=== PATIENT | female | born 1960 | race Caucasian/White ===

== ENCOUNTER 2016-12-06 16:15 | Emergency (ER) | payer SELFPAY ==
[2016-12-06] MEDS ORDERED: Proparacaine 0.5% OPHTH.SOL* 15 ML BTL ONE (16:23)
[2016-12-06] MEDS ORDERED: Fluorescein Sodium TOPICAL* 1 MG TEST ONE (16:23)
[2016-12-06] MEDS ORDERED: BSS OPTH.SOL* BTL ONE (16:23)
[2016-12-06 16:40] VITALS: BP 144/76
--- NOTE | 2016-12-06 17:33 | UC ---
Eye Complaint HPI - HPI Summary HPI Summary: R eye irritation and mild drainage for a couple days with FB sensation. Crusting and draining worse today, sharper sensation just this evening. Lots of R eye redness. - History of Current Complaint Chief Complaint: UCEye Stated Complaint: EYE IRRITATION Time Seen by Provider: 12/06/16 17:23 Hx Obtained From: Patient ?: No Onset/Duration: Gradual Onset, Lasting Days Timing: Constant Severity Initially: Mild Severity Currently: Mild Location of Injury: Conjunctiva Character: Sharp Aggravating Factor(s): Nothing Alleviating Factor(s): Nothing Associated Signs And Symptoms: Positive: Drainage (Clear) - Allergies/Home Medications Allergies/Adverse Reactions: Allergies Allergy/AdvReac Type Severity Reaction Status Date / Time No Known Allergies Allergy Verified 06/21/16 08:08 Home Medications: Home Medications Aleve 2 tab PO PRN 12/06/16 [History] PMH/Surg Hx/FS Hx/Imm Hx Endocrine History Of: Reports: Dyslipidemia - Hyper Denies: Diabetes, Thyroid Disease Cardiovascular History Of: Denies: Cardiac Disorders, Hypertension Respiratory History Of: Denies: COPD, Asthma GI/ History Of: Denies: Ulcer - Surgical History Surgical History: Yes Surgery Procedure, Year, and Place: 2 hernia surgeries. partial hysterectomy - Family History Known Family History: Positive: Hypertension Negative: Diabetes - Social History Occupation: Employed Full-time Lives: Alone - with boyfriend Alcohol Use: Occasionally Substance Use Type: None Smoking Status (MU): Never Smoked Tobacco Review of Systems Constitutional: Negative Skin: Negative Eyes: Drainage, Eye Redness ENT: Negative Respiratory: Negative Cardiovascular: Negative Gastrointestinal: Negative Genitourinary: Negative Motor: Negative Neurovascular: Negative Musculoskeletal: Negative Neurological: Negative Psychological: Negative All Other Systems Reviewed And Are Negative: Yes Physical Exam Triage Information Reviewed: Yes Appearance: Well-Appearing, No Pain Distress, Well-Nourished Vital Signs: Initial Vital Signs Temp 98.6 F 12/06/16 16:33 Pulse 70 12/06/16 16:33 Resp 18 12/06/16 16:33 BP 144/76 12/06/16 16:33 Pulse Ox 97 12/06/16 16:33 Eye Exam: Other - stye noted on mid lower eyelid edge. FB sensation resolves with pulling lid away from eye. No photophobia. Eyes: Positive: Conjunctiva Inflamed - R ENT Exam: Normal ENT: Positive: Normal ENT inspection, Hearing grossly normal, Pharynx normal, TMs normal Dental Exam: Normal Neck exam: Normal Neck: Positive: Supple, Nontender, No Lymphadenopathy Respiratory Exam: Normal Respiratory: Positive: Chest non-tender, Lungs clear, Normal breath sounds, No respiratory distress, No accessory muscle use Cardiovascular Exam: Normal Cardiovascular: Positive: RRR, No Murmur Musculoskeletal Exam: Normal Neurological Exam: Normal Psychological Exam: Normal Skin Exam: Normal Eye Complaint Course/Dx - Differential Dx/Diagnosis Provider Diagnoses: R eye stye. R eye conjunctivitis Discharge - Discharge Plan Condition: Stable Disposition: HOME Prescriptions: Ciprofloxacin 0.3% OPTH.BONI* [Cipro 0.3% Opth*] 2 drop RIGHT EYE QID #5 ml Patient Education Materials: Stye (ED), Conjunctivitis (ED) Referrals: No Primary Care Phys,NOPCP [Primary Care Provider] - Additional Instructions: Apply warm soaks every 1-2 hours this weekend. If you do not see clear improvement by next week, please return for care.
== END 2016-12-06 17:32 | disposition home or self-care (01) ==
LOC: UCEAST 16:15
DX: H00.012 Hordeolum externum right lower eyelid (principal); H10.31 Unspecified acute conjunctivitis, right eye
CPT/HCPCS: 99212; A9270-GY; G0463

== ENCOUNTER 2017-08-19 15:28 | Emergency (ER) | payer BC ==
[2017-08-19] MEDS ORDERED: Dexamethasone TAB* 4 MG PO ONE (17:51)
[2017-08-19] MEDS ORDERED: Cyclobenzaprine TAB* 10 MG PO ONE (17:51)
[2017-08-19] MEDS ORDERED: Ketorolac INJ* 60 MG/2 ML VIAL IM ONE (17:51)
--- NOTE | 2017-08-19 17:56 | ED ---
Back Pain - HPI Summary HPI Summary: 56F presents with back pain for two weeks. She denies any injury. She describes it as a spasms of her lower back. She states the heating pad helps. she denies any pain down the leg. She denies any numbness or tingling. she denies any loss of bowel or bladder or saddle anasethesia. She denies any fever. She has been taking advil without relief. She states pain is sharp and comes and goes. 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 - History of Current Complaint Chief Complaint: EDBackInjuryPain Stated Complaint: BACK SPASMS/PAIN Time Seen by Provider: 08/19/17 17:42 Pain Intensity: 10 - Allergies/Home Medications Allergies/Adverse Reactions: Allergies Allergy/AdvReac Type Severity Reaction Status Date / Time No Known Allergies Allergy Verified 08/19/17 15:31 PMH/Surg Hx/FS Hx/Imm Hx Endocrine/Hematology History: Denies: Hx Diabetes, Hx Thyroid Disease Cardiovascular History: Denies: Hx Hypertension Respiratory History: Denies: Hx Asthma, Hx Chronic Obstructive Pulmonary Disease (COPD) GI History: Denies: Hx Ulcer - Surgical History Surgery Procedure, Year, and Place: 2 hernia surgeries. partial hysterectomy Infectious Disease History: No Infectious Disease History: Denies: Hx Hepatitis, Hx Human Immunodeficiency Virus (HIV), History Other Infectious Disease, Traveled Outside the in Last 30 Days - Family History Known Family History: Positive: Hypertension Negative: Diabetes - Social History Alcohol Use: Occasionally Substance Use Type: Reports: None Smoking Status (MU): Never Smoked Tobacco Review of Systems Negative: Fever Negative: Chest Pain Negative: Shortness Of Breath Positive: Myalgia - back pain All Other Systems Reviewed And Are Negative: Yes Physical Exam Triage Information Reviewed: Yes Vital Signs On Initial Exam: Initial Vitals Temp Pulse Resp BP Pulse Ox 97.3 F 88 16 162/88 97 08/19/17 15:30 08/19/17 15:30 08/19/17 15:30 08/19/17 15:30 08/19/17 15:30 Vital Signs Reviewed: Yes Appearance: Positive: Well-Appearing Skin: Positive: Warm, Dry Head/Face: Positive: Normal Head/Face Inspection Eyes: Positive: Normal, EOMI, ODALIS, Conjunctiva Clear ENT: Positive: Normal ENT inspection, Pharynx normal, TMs normal Respiratory/Lung Sounds: Positive: Clear to Auscultation, Breath Sounds Present Cardiovascular: Positive: Normal, RRR Musculoskeletal: Positive: Strength/ROM Intact - back with pain, Other - tenderness at L1-L2, tenderness over paraspinal muscles. neg SLR Neurological: Positive: Reflexes Intact - patella - Dony Coma Scale Coma Scale Total: 15 Diagnostics - Vital Signs Vital Signs Temp Pulse Resp BP Pulse Ox 08/19/17 15:30 97.3 F 88 16 162/88 97 - Laboratory Lab Statement: Any lab studies that have been ordered have been reviewed, and results considered in the medical decision making process. - Radiology back Xray Interpretation: Positive (See Comments) - IMPRESSION: Mild degenerative changes of the lower thoracic spine. Radiology Interpretation Completed By: Radiologist Re-Evaluation - Re-Evaluation First Eval Re-Evaluation Time: 19:18 Change: Improved Back Pain Course/Dx - Course Course Of Treatment: 56F presents with back pain for two weeks. She denies any injury. She describes it as a spasms of her lower back. She states the heating pad helps. she denies any pain down the leg. She denies any numbness or tingling. she denies any loss of bowel or bladder or saddle anasethesia. She denies any fever. She has been taking advil without relief. She states pain is sharp and comes and goes. 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 on exam tender over paraspinal muscle at L1-L2. back xray degenerative changes. gave flexeril and toradol and decadron and patient felt better. will d/c with same and referral for primary. patient understands and agrees with plan. - Diagnoses Differential Diagnosis/HQI/PQRI: Positive: Herniated Disc, Strain, Sprain Provider Diagnoses: Back pain Discharge - Discharge Plan Condition: Good Disposition: HOME Prescriptions: Cyclobenzaprine TAB* [Flexeril 10 MG TAB*] 10 mg PO TID PRN #15 tab PRN Reason: Pain Methylprednisolone [Medrol Dosepak 4 MG*] 4 mg PO .SEE ANABELLA INSTRUCTION #1 packet Patient Education Materials: Back Pain (ED) Forms: *Work Release Referrals: [facility] [place] [facility] [Outside] Additional Instructions: Follow directions on package for Medrol pack Take muscle relaxers three times a day, use with caution as will make drowsy Use ibuprofen or Tylenol for pain every 6 hours ice/heat area, move as much as possible Establish care with primary care physician Return to ED if develop any new or worsening symptoms
--- NOTE | 2017-08-19 18:40 | RAD ---
INDICATION: Back pain x2 weeks COMPARISON: None. TECHNIQUE: 5 views of the lumbar spine were obtained. FINDINGS: The vertebra are in normal alignment. No fracture is seen. There is mild loss of intervertebral disc height at the lower thoracic spine. IMPRESSION: Mild degenerative changes of the lower thoracic spine.
[2017-08-19 18:59] LABS: Urine Bacteria Absent (Absent); Urine Bilirubin Negative (Negative); Urine Glucose Negative (Negative); Urine Nitrite Negative (Negative)
[2017-08-19 19:27] VITALS: BP 141/78
== END 2017-08-19 19:27 | disposition home or self-care (01) ==
LOC: ED 15:28
DX: M54.9 Dorsalgia, unspecified (principal)
CPT/HCPCS: 72110; 81003; 81015; 87086; 96372; 99282; A9270-GY; J1885; J8540

== ENCOUNTER 2017-10-12 08:14 | Emergency (ER) | payer BC ==
[2017-10-12 08:20] VITALS: BP 170/70
--- NOTE | 2017-10-12 09:14 | UC ---
Throat Pain/Nasal Manjinder HPI - HPI Summary HPI Summary: worsening dental pain over the past week---right lower jaw is swollen - History of Current Complaint Hx Obtained From: Patient ?: No Onset/Duration: Gradual Onset, Worse Since - pastthis week Severity: Severe Pain Intensity: 10 Pain Scale Used: 0-10 Numeric Cough: None Associated Signs & Symptoms: Positive: Negative <Lacey Valdez - Last Filed: 10/12/17 09:26> <Yelitza Granado - Last Filed: 10/12/17 09:46> - History of Current Complaint Chief Complaint: UCDentalProblem Stated Complaint: SWOLLEN GLANDS Time Seen by Provider: 10/12/17 09:03 - Allergies/Home Medications Allergies/Adverse Reactions: Allergies Allergy/AdvReac Type Severity Reaction Status Date / Time No Known Allergies Allergy Verified 08/19/17 15:31 PMH/Surg Hx/FS Hx/Imm Hx Previously Healthy: No - Back pain - Surgical History Surgical History: Yes Surgery Procedure, Year, and Place: 2 hernia surgeries. partial hysterectomy - Family History Known Family History: Positive: Hypertension Negative: Diabetes - Social History Occupation: Employed Full-time Lives: With Family Alcohol Use: Occasionally Substance Use Type: None Smoking Status (MU): Never Smoked Tobacco <Lacey Valdez - Last Filed: 10/12/17 09:26> Review of Systems Constitutional: Negative Skin: Negative Eyes: Negative ENT: Dental Pain Respiratory: Negative Cardiovascular: Negative Gastrointestinal: Negative Genitourinary: Negative Motor: Negative Neurovascular: Negative Musculoskeletal: Negative Neurological: Negative Psychological: Negative Is Patient Immunocompromised?: No All Other Systems Reviewed And Are Negative: Yes <Lacey Valdez - Last Filed: 10/12/17 09:26> Physical Exam Triage Information Reviewed: Yes Appearance: Well-Appearing, Pain Distress, Obese Vital Signs: Initial Vital Signs Temp 97.9 F 10/12/17 08:18 Pulse 91 10/12/17 08:18 Resp 18 10/12/17 08:18 BP 170/70 10/12/17 08:18 Pulse Ox 100 10/12/17 08:18 Vital Signs Reviewed: Yes Eye Exam: Normal Eyes: Positive: Conjunctiva Clear ENT Exam: Normal ENT: Positive: Normal ENT inspection, Hearing grossly normal, Pharynx normal, TMs normal, Dental tenderness. Negative: Nasal congestion, Nasal drainage, Tonsillar swelling, Tonsillar exudate, Trismus, Muffled voice, Hoarse voice Dental Exam: Normal Dental: Positive: Percussion Tenderness @ - multipl, Gross Decay/Caries @, Dental Fracture @, Abscess @ Neck exam: Normal Neck: Positive: Supple, Nontender, No Lymphadenopathy Respiratory Exam: Normal Respiratory: Positive: Chest non-tender, Lungs clear, Normal breath sounds, No respiratory distress, No accessory muscle use Cardiovascular Exam: Normal Cardiovascular: Positive: RRR, No Murmur, Pulses Normal, Brisk Capillary Refill Musculoskeletal Exam: Normal Musculoskeletal: Positive: Strength Intact, ROM Intact, No Edema Neurological Exam: Normal Neurological: Positive: Alert, Muscle Tone Normal Psychological Exam: Normal Skin Exam: Normal <Lacey Valdez - Last Filed: 10/12/17 09:26> Vital Signs: Initial Vital Signs Temp 97.9 F 10/12/17 08:18 Pulse 91 10/12/17 08:18 Resp 18 10/12/17 08:18 BP 170/70 10/12/17 08:18 Pulse Ox 100 10/12/17 08:18 <Yelitza Granado - Last Filed: 10/12/17 09:46> Throat Pain/Nasal Course/Dx - Course Assessment/Plan: clindamycin, pain med, mouth wash, follow at dentist yaneth, follow with pcp for blood pressure recheck - Differential Dx/Diagnosis Provider Diagnoses: Multiple denal carries and abscess, elevated blood pressure with diagnosis of hypertension <Lacey Valdez - Last Filed: 10/12/17 09:26> Discharge <Lacey Valdez - Last Filed: 10/12/17 09:26> <Yelitza Granado - Last Filed: 10/12/17 09:46> - Discharge Plan Condition: Stable Disposition: HOME Prescriptions: Chlorhexidine MW 0.12% 473ML* [Peridex Mouth Wash 0.12%] 15 ml MT TID #473 btl Clindamycin Cap(NF) [Clindamycin Cap 300 mg Cap(NF)] 300 mg PO Q6H #40 cap Hydrocodone-Acetaminophen [Hydrocodone/Acetaminophen 5-325 mg] 1 tab PO Q6H #16 tab MDD 4 Patient Education Materials: Dental Abscess (ED), Hypertension (ED), Toothache (ED) Referrals: [facility] [place] [facility] [Outside] - 2 Weeks Additional Instructions: Follow with Dentist YANETH Attestation Statement Scribe Attestation: I was available for consult. This patient was seen by the LISSETH. The patient was not presented to, seen by, or examined by me. -Jing User Type: Provider - I was available for consult. This patient was seen by the LISSETH. The patient was not presented to, seen by, or examined by me. -Jing <Yelitza Granado - Last Filed: 10/12/17 09:46>
== END 2017-10-12 09:35 | disposition home or self-care (01) ==
LOC: UCEAST 08:14
DX: K02.9 Dental caries, unspecified (principal); K04.7 Periapical abscess without sinus; I10 Essential (primary) hypertension
CPT/HCPCS: 99212; G0463

== ENCOUNTER 2017-12-08 11:23 | Emergency (ER) | payer BC ==
[2017-12-08 11:45] VITALS: BP 135/78
--- NOTE | 2017-12-08 12:15 | UC ---
Back Pain HPI - HPI Summary HPI Summary: Patient presents of nontraumatic thoracic back pain x one week. She states she has had problems with her back off and on for a long time. 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 And one week ago she started to experience pain in the thoracic area that at times radiates outward bilaterally. She states the pain is worse with movement, and improves at rest. She denies any numbness or weakness of the arm. Denies fever, chills, cough, chest congestion, rhinorrhea, sore throat or ear pain, generalized myalgias, or neuralgias associated with her pain. She states it is like previous back pain she has had in the past. Denies any incontinence of bowel or bladder. 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 Character: Sharp, Spasmodic Aggravating Factor(s): Movement, Lifting Alleviating Factor(s): Heat, OTC Meds Associated Signs And Symptoms: Positive: Negative - Risk Factors AAA Risk Factors: Negative TAD Risk Factors: Negative Cauda Equina Risk Factors: Negative Epidural Abscess Risk Factors: Negative - Allergies/Home Medications Allergies/Adverse Reactions: Allergies Allergy/AdvReac Type Severity Reaction Status Date / Time No Known Allergies Allergy Verified 12/08/17 11:45 Home Medications: Home Medications Acetaminophen TAB* [Tylenol TAB*] 650 mg PO Q4H PRN 12/08/17 [History Confirmed 12/08/17] PMH/Surg Hx/FS Hx/Imm Hx Previously Healthy: Yes - Surgical History Surgical History: Yes Surgery Procedure, Year, and Place: 2 hernia surgeries. partial hysterectomy - Family History Known Family History: Positive: Hypertension Negative: Diabetes - Social History Occupation: Employed Full-time Alcohol Use: Occasionally Substance Use Type: Marijuana Substance Use Comment - Amount & Last Used: occassional Smoking Status (MU): Never Smoked Tobacco - Immunization History Most Recent Influenza Vaccination: 2017 Review of Systems Constitutional: Negative Skin: Negative Eyes: Negative ENT: Negative Respiratory: Negative Cardiovascular: Negative Gastrointestinal: Negative Genitourinary: Negative Motor: Negative Neurovascular: Negative Musculoskeletal: Arthralgia, Myalgia, Other: - reproted pain of the thoracic back area. Neurological: Negative Psychological: Negative Is Patient Immunocompromised?: No All Other Systems Reviewed And Are Negative: Yes Physical Exam Triage Information Reviewed: Yes Appearance: Well-Appearing Vital Signs: Initial Vital Signs Temp 98.6 F 12/08/17 11:38 Pulse 72 12/08/17 11:38 Resp 16 12/08/17 11:38 BP 135/78 12/08/17 11:38 Pulse Ox 98 12/08/17 11:38 Vital Signs Reviewed: Yes Eye Exam: Normal ENT Exam: Normal Neck exam: Normal Neck: Positive: 1 Respiratory Exam: Normal Cardiovascular Exam: Normal Musculoskeletal Exam: Normal, Other - back inspection; vertebra are in good aligment without step-offs or deformities. palaption; reproducible pain at t-10,t-11,t-12. and laterally over the latissmus dorsi bilateraly. ROM; intact in all planes of trunk with flexion, and extension. upper extremities strength testing equal 4/5. vasc; radial and ulnar pulses intact neruo;no dificits noted. Neurological Exam: Normal Psychological Exam: Normal Skin Exam: Normal Back Pain Course/Dx - Course Course Of Treatment: Patient presents with history of back pain, she reports todays back pain is similar to what she has had in the past. No recent injury or trauma noted. I did not feel that x-rays were therefore indicated. She was treated with muscle relaxants, and pain medication. She was cautioned that these medications can cause sedation, and she should no consume any alcohol, drive any vehicles, or operate any equipent. I told her that is her symtpoms persist more than 48 hours to follow up with her PCP.She verbalized understanding of and was in agreement with the discharge plan. - Differential Dx/Diagnosis Differential Diagnosis/HQI/PQRI: Strain, Sprain - acute on chronic thoracic back pain Provider Diagnoses: acute on chronic thoracic back pain Discharge - Discharge Plan Condition: Stable Disposition: HOME Prescriptions: Cyclobenzaprine TAB* [Flexeril 10 MG TAB*] 10 mg PO TID PRN #14 tab PRN Reason: muscle spasam HYDROcodone/ACETAMIN 5-325 MG* [[place] 5-325 TAB*] 1 tab PO Q8H PRN #14 tab MDD 3 PRN Reason: back pain Patient Education Materials: Aspirin Combination (By mouth), Back Pain (ED) Forms: *Work Release Referrals: Caitlin Butcher MD [Primary Care Provider] -
== END 2017-12-08 12:11 | disposition home or self-care (01) ==
LOC: UCEAST 11:23
DX: M54.6 Pain in thoracic spine (principal); G89.29 Other chronic pain
CPT/HCPCS: 99212; G0463

== ENCOUNTER 2017-12-31 15:31 | Emergency (ER) | payer BC ==
--- OUTSIDE RECORDS SUMMARY | 2017-12-31 15:38 | XMS REPORT ---
:1960 External Reference #:[id number] Author Organization [facility] Address [address] [place] [address] Phone [phone] Care Team Providers Name Role Phone Caitlin Butcher M.D. 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 @ [employer] Cigarette Use Never Smoked Cigarettes ETOH Use Occasional Smoking Patient has never smoked Recreational Drug Use Marijuana occasional Daily Caffeine Does not consume caffeine Currently Active Patient is currently sexually active Contraceptive Methods Current methods include vasectomy Contraceptive Methods Hysterectomy STD's No STD History Dom Violence Screen screening has been done Allergies, Adverse Reactions, Alerts Date Description Reaction Status Severity Comments 10/20/2017 NKDA active Medications Medication Date Status Form Strength Qnty SIG Indications Ordering Provider Hydrocodone-Aceta 00/00/ Active Tablets 5-325mg 1 by mouth Unknown minophen 0000 four times a day as needed pain Cyclobenzaprine 00/00/ Active Tablets 10mg 1 by mouth Unknown HCL 0000 three times a day as needed Physical Therapy 1units evaluate M65.311 Anastasiya 2017 - and treat Jillian 12/15/ 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 Do not swallow Hydrocodone-Aceta / Hx Tablets 5-325mg 1 by mouth Unknown minophen 0000 - four times a day as 2018 needed pain Clindamycin HCL / Hx Capsules 300mg 1 by mouth Unknown 0000 - four times a day 2018 Immunizations CPT Code Status Date Vaccine Lot # [id number] Given 10/20/2017 Tdap Tetanus, W Pertussis [id number] Given 10/20/2017 Influenza vac quadrivalent preservative free 3yrs [id number] and up Vital Signs Date Vital Result Comment 12/23/2017 BP Systolic 118 mmHg BP Diastolic 80 mmHg Heart Rate 74 /min Body Temperature 98.2 F Respiratory Rate 16 /min Height 59 inches 4'11" 12/15/2017 BP Systolic 124 mmHg BP Diastolic 84 mmHg Heart Rate 64 /min Body Temperature 98.8 F Respiratory Rate 18 /min Height 59 inches 4'11" Weight 151.00 lb BMI (Body Mass Index) 30.5 kg/m2 10/20/2017 BP Systolic 122 mmHg BP Diastolic 80 mmHg Heart Rate 78 /min Body Temperature 97.9 F Height 59 inches 4'11" Weight 152.25 lb BMI (Body Mass Index) 30.7 kg/m2 Results Test Date Test Result H/L Range Note Xray 12/08/2017 Mammography Screening, Bilateral; <pending> 2-View Each Breast Procedures Date CPT Code Description Status Comment 12/08/2017 Mammogram Completed 11/17/2010 Mammogram Completed ordered 10/20/17 Encounters Type Date Location Provider CPT E/M Dx Office Visit 12/15/2017 6:30p [place] [id number] M54.9 Office Visit 10/20/2017 9:00a [place] [id number] Z12.31 Z12.11 R03.0 M65.311 M79.671 Z23 Plan of Care 12/23/2017 - Anastasiya Babin NPM54.9 Dorsalgia, unspecifiedComments:Apply heat packs to affected area. Use acetaminophen/ibuprofen/aleve for pain as directed. Avoid heavy lifting. Do milena stretching but nothing strenuous. Sleep in a bed, avoid couches or recliners. Muscle relaxer: take at night. do not drink alcohol with this medication. Do no drive or operate heavy machinery with this medication due to its sedating effects. Return if condition worsens, fails to improve or if concerning features arise.Z12.11 Encounter for screening for malignant neoplasm of colonComments:colonoscopy has been ordered.AllComments :~B_~U_Medication Management~b_~u_ Patient Understands medications she's taking ? Yes No Are there Barriers to Adherence? Yes No Has the patient been asked about herbal supplements and therapies, and OTC meds? Yes No ~B_~U_Care Plan~b_~u_1. Patient has been queried about patient's goals/ preferences and functional/lifestyle goals at relevant visits. If relevant, describe: na2. Treatment goals as explained to the patient: above3. Are there barriers to meeting treatment goals? Yes No If Yes, please describe:4. Self-Management goals as described to the patient: Yes NoFollow up:As always, we strongly encourage a healthy diet and making physical activity a part of your every day life. If you have questions about how or where to start, please contact the office.
[2017-12-31 15:53] VITALS: BP 152/91
--- NOTE | 2017-12-31 16:19 | UC ---
Back Pain HPI - HPI Summary HPI Summary: Pt presents with continued lower back pain. She tells me that about 3 weeks ago she developed mid to lower back pain without injury. 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 She was seen by her PCP and by urgent care for this and is currently undergoing physical therapy, using norco, ibuprofen, tylenol, and flexeril all with very little relief. She presents today in a wheelchair, unable to ambulate without significant pain. She denies radiation of pain, numbness, tingling, dysuria, flank pain, saddle anesthesia, or loss of bowel/ bladder function. - History of Current Complaint Hx Obtained From: Patient Hx Last Menstrual Period: post Onset/Duration: Sudden Onset, Lasting Weeks Timing: Constant Severity Initially: Severe Severity Currently: Severe Pain Intensity: 10 Pain Scale Used: 0-10 Numeric <Denis Sellers - Last Filed: 01/01/18 00:51> <Yelitza Granado - Last Filed: 01/01/18 09:28> - History of Current Complaint Chief Complaint: UCBackPain Stated Complaint: BACK PAIN Time Seen by Provider: 12/31/17 16:09 - Allergies/Home Medications Allergies/Adverse Reactions: Allergies Allergy/AdvReac Type Severity Reaction Status Date / Time No Known Allergies Allergy Verified 12/31/17 16:51 PMH/Surg Hx/FS Hx/Imm Hx Previously Healthy: Yes - Surgical History Surgical History: Yes Surgery Procedure, Year, and Place: 2 hernia surgeries. partial hysterectomy - Family History Known Family History: Positive: Hypertension Negative: Diabetes - Social History Occupation: Employed Full-time Alcohol Use: Occasionally Substance Use Type: Marijuana Substance Use Comment - Amount & Last Used: occassional Smoking Status (MU): Never Smoked Tobacco - Immunization History Most Recent Influenza Vaccination: 2016 <Denis Sellers - Last Filed: 01/01/18 00:51> Review of Systems Constitutional: Negative Skin: Negative Respiratory: Negative Cardiovascular: Negative Gastrointestinal: Negative Genitourinary: Negative Musculoskeletal: Other: - back pain Neurological: Negative Psychological: Negative All Other Systems Reviewed And Are Negative: Yes <Denis Sellers - Last Filed: 01/01/18 00:51> Physical Exam Triage Information Reviewed: Yes Completion Of Physical Exam Limited Due To: Other - Pain Appearance: No Pain Distress, Well-Nourished Vital Signs: Initial Vital Signs Temp 98.6 F 12/31/17 15:47 Pulse 79 12/31/17 15:47 Resp 17 12/31/17 15:47 BP 152/91 12/31/17 15:47 Pulse Ox 100 12/31/17 15:47 Vital Signs Reviewed: Yes Respiratory: Positive: Lungs clear, Normal breath sounds, No respiratory distress Cardiovascular: Positive: RRR, No Murmur, Pulses Normal Abdomen Description: Positive: Nontender, No Organomegaly, Soft. Negative: CVA Tenderness (R), CVA Tenderness (L), Distended, Guarding Bowel Sounds: Positive: Present Musculoskeletal: Positive: Strength Intact - B/L LEs, Other: - TTP over lower thoracic and lumbar paraspinal muscles. Unable to perform ROM, SLR, or LORRI due to pain and general lack of cooperation with exam Neurological: Positive: Alert, Other: - Sensations intact L3-S1 b/l Psychological: Positive: Age Appropriate Behavior Skin: Negative: rashes <Denis Sellers - Last Filed: 01/01/18 00:51> Vital Signs: Initial Vital Signs Temp 98.6 F 12/31/17 15:47 Pulse 79 12/31/17 15:47 Resp 17 12/31/17 15:47 BP 152/91 12/31/17 15:47 Pulse Ox 100 12/31/17 15:47 <Yelitza Granado - Last Filed: 01/01/18 09:28> Back Pain Course/Dx - Course Course Of Treatment: I presented the patient with three options that seemed most reasonable to me at this time. 1) XR of her thoracic and lumbar spine at the clinic today and if negative could try adding lidoderm patches. 2) continue with current treatments and f/u with her PCP this week. 3) Seek further evaluation of her back pain in the ED for potential ortho/neuro consult, MRI/CT , and/or additional pain medication. Pt elected to go to the ED. Her friend with her today will drive her. - Differential Dx/Diagnosis Provider Diagnoses: Low back pain <Denis Sellers - Santos Filed: 01/01/18 00:51> Discharge - Discharge Plan Discharge Disposition Comment: To [facility] by private vehicle <Denis Sellers Last Filed: 01/01/18 00:51> - Discharge Plan Discharge Disposition Comment: To [facility] by private vehicle <Yelitza Granado - Last Filed: 01/01/18 09:28> - Discharge Plan Condition: Stable Referrals: Caitlin Butcher MD [Primary Care Provider] - Additional Instructions: Please report to the [facility] ED for further evaluation of your back pain Attestation Statement User Type: Provider - I was available for consult. This patient was seen by the advanced practice provider. The patient was not presented to, seen by, or examined by sd.-Jing <Yelitza Granado - Last Filed: 01/01/18 09:28>
== END 2017-12-31 16:26 ==
LOC: UCEAST 15:31
DX: M54.5 Low back pain (principal); Z90.711 Acquired absence of uterus with remaining cervical stump
CPT/HCPCS: 99211; G0463

== ENCOUNTER 2017-12-31 16:44 | Emergency (ER) | payer BC ==
[2017-12-31] MEDS ORDERED: Methocarbamol TAB* 500 MG PO ONE (17:17)
[2017-12-31] MEDS ORDERED: Ketorolac INJ* 60 MG/2 ML VIAL IM ONE (17:18)
[2017-12-31] MEDS ORDERED: Dexamethasone TAB* 4 MG PO ONE (17:18)
--- NOTE | 2017-12-31 17:57 | ED ---
Back Pain - HPI Summary HPI Summary: 57-year-old female presents with back pain for the past month. She has been seen multiple times by urgent care and her primary. She is currently doing PT. She has been taking a muscle relaxer with last dose 3 days ago. She has been using hydrocodone for her pain with some relief. She denies any injury. She denies any fevers. She denies any weakness. She denies any numbness or tingling to her legs. She denies any saddle anesthesia or loss of bladder or bowel. She states her pain as in the same location as previous. She states one thing that has changed is the intense over the past day. She denies any dysuria or hematuria. 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 - History of Current Complaint Chief Complaint: EDBackInjuryPain Stated Complaint: BACK PAIN Time Seen by Provider: 12/31/17 16:58 Hx Last Menstrual Period: post Pain Intensity: 10 - Allergies/Home Medications Allergies/Adverse Reactions: Allergies Allergy/AdvReac Type Severity Reaction Status Date / Time No Known Allergies Allergy Verified 12/31/17 16:51 PMH/Surg Hx/FS Hx/Imm Hx Endocrine/Hematology History: Denies: Hx Diabetes, Hx Thyroid Disease Cardiovascular History: Denies: Hx Hypertension Respiratory History: Denies: Hx Asthma, Hx Chronic Obstructive Pulmonary Disease (COPD) GI History: Denies: Hx Ulcer - Cancer History Cancer Type, Location and Year: denies - Surgical History Surgery Procedure, Year, and Place: 2 hernia surgeries. partial hysterectomy Infectious Disease History: No Infectious Disease History: Denies: Hx Clostridium Difficile, Hx Hepatitis, Hx Human Immunodeficiency Virus (HIV), Hx of Known/Suspected MRSA, Hx Shingles, Hx Tuberculosis, Hx Known/ Suspected VRE, Hx Known/Suspected VRSA, History Other Infectious Disease, Traveled Outside the [place] in Last 30 Days - Family History Known Family History: Positive: Hypertension Negative: Diabetes - Social History Alcohol Use: Occasionally Substance Use Type: Reports: Marijuana Substance Use Comment - Amount & Last Used: occassional Smoking Status (MU): Never Smoked Tobacco Review of Systems Negative: Fever Negative: Chest Pain Negative: Shortness Of Breath Positive: Myalgia - back pain All Other Systems Reviewed And Are Negative: Yes Physical Exam Triage Information Reviewed: Yes Vital Signs On Initial Exam: Initial Vitals Temp Pulse Resp BP Pulse Ox 98.2 F 64 20 141/83 98 12/31/17 16:46 12/31/17 16:46 12/31/17 16:46 12/31/17 16:46 12/31/17 16:46 Vital Signs Reviewed: Yes Appearance: Positive: Well-Appearing Skin: Positive: Warm, Dry Head/Face: Positive: Normal Head/Face Inspection Eyes: Positive: Normal, Conjunctiva Clear Respiratory/Lung Sounds: Positive: Clear to Auscultation, Breath Sounds Present Cardiovascular: Positive: Normal, RRR Musculoskeletal: Positive: Strength/ROM Intact - back with pain, Other - tenderness lower L1-L3 and sides of lower back, neg SLR, sensation grossly intact, good pulses Neurological: Positive: Reflexes Intact - patella Psychiatric: Positive: Normal Diagnostics - Vital Signs Vital Signs Temp Pulse Resp BP Pulse Ox 12/31/17 16:46 98.2 F 64 20 141/83 98 - Laboratory Lab Statement: Any lab studies that have been ordered have been reviewed, and results considered in the medical decision making process. - CT lumbar CT Interpretation: Positive (See Comments) - IMPRESSION: At L5-S1 there is broad-based protrusion slightly asymmetric towards the right which may impinge upon the right exiting nerve root. No fracture of the lumbar spine is noted. CT Interpretation Completed By: Radiologist Back Pain Course/Dx - Course Course Of Treatment: 57-year-old female presents with back pain for the past month. She has been seen multiple times by urgent care and her primary. She is currently doing PT. She has been taking a muscle relaxer with last dose 3 days ago. She has been using hydrocodone for her pain with some relief. She denies any injury. She denies any fevers. She denies any weakness. She denies any numbness or tingling to her legs. She denies any saddle anesthesia or loss of bladder or bowel. She states her pain as in the same location as previous. She states one thing that has changed is the intense over the past day. She denies any dysuria or hematuria. 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 On exam tenderness to lower back at L2 through L3. Neurovascular intact. Negative straight leg raise. Good strength in lower extremities. CT shows nothing at level of her pain. will try different muscle relaxer, prednisone, and lidocaine patch. will have follow up with primary for continued care. patient understand and agrees with plan. - Diagnoses Differential Diagnosis/HQI/PQRI: Positive: Herniated Disc, Strain, Sprain Provider Diagnoses: Back pain Discharge - Discharge Plan Condition: Good Disposition: HOME Patient Education Materials: Back Pain (ED) Referrals: Caitlin Butcher MD [Primary Care Provider] - Additional Instructions: Follow directions on package for Medrol pack Take muscle relaxers three times a day Apply lidocaine patches to area for up to 12 hours in one 24 hour period Use ibuprofen or Tylenol for pain every 6 hours ice/heat area, move as much as possible Follow up with primary within 5 days Return to ED if develop any new or worsening symptoms
[2017-12-31] MEDS ORDERED: Lidocaine PATCH 5%* 1 PATCH TRANSDERM SCH (18:00)
--- NOTE | 2017-12-31 18:00 | RAD ---
Indication: Low back pain. CT of the lumbar spine was obtained in the axial plane. Sagittal and coronal reconstructed images were obtained. The vertebral bodies appear normal in height. No compression fracture is noted. At L5-S1 there is right posterior lateral disc protrusion which is broad-based slightly impinge upon the right exiting nerve root. No protrusion is noted. At L4-L5 broad-based protrusion flattens the thecal sac. No central foraminal stenosis is noted. At L2-L3 and L3-L4 and L1-L2 no disc protrusion is identified. No fracture of the lumbar spine is noted. IMPRESSION: At L5-S1 there is broad-based protrusion slightly asymmetric towards the right which may impinge upon the right exiting nerve root. No fracture of the lumbar spine is noted.
[2017-12-31 18:44] VITALS: BP 138/80
== END 2017-12-31 18:43 | disposition home or self-care (01) ==
LOC: ED 16:44
DX: M54.5 Low back pain (principal)
CPT/HCPCS: 72131; 96372; 99282; A9270-GY; J1885; J8540

== ENCOUNTER 2018-06-04 13:12 | Emergency (ER) | payer BC ==
[2018-06-04 13:26] VITALS: BP 127/80
--- NOTE | 2018-06-04 14:28 | UC ---
Abdominal Pain Female HPI - HPI Summary HPI Summary: Patient is an otherwise healthy 57-year-old female presenting to the with a complaint of lower abdominal hernia pain which began this afternoon. She states the hernia was repaired 21 years ago and is intermittently in pain, however today she states the pain has been the worst that it has been over the past several years with a 8/10 pain, worse with sitting up and better with lying flat. Denies any color temperature changes to the area. She continues to eat and drink okay. Denies any urinary symptoms or back pain. - History of Current Complaint Chief Complaint: UCAbdominalPain Stated Complaint: ABD PAIN CRAMPS Time Seen by Provider: 06/04/18 13:29 Hx Obtained From: Patient Hx Last Menstrual Period: post ?: No Onset/Duration: Sudden Onset Timing: Constant Severity Initially: Moderate Severity Currently: Moderate Pain Intensity: 0 Pain Scale Used: 0-10 Numeric Location: Suprapubic Radiates: No Character: Aching Aggravating Factor(s): Nothing Alleviating Factor(s): Position Associated Signs and Symptoms: Positive: Negative - Risk Factors Ectopic Risk Factor: Negative Allergies/Adverse Reactions: Allergies Allergy/AdvReac Type Severity Reaction Status Date / Time No Known Allergies Allergy Verified 06/04/18 13:26 PMH/Surg Hx/FS Hx/Imm Hx Previously Healthy: Yes - Surgical History Surgical History: Yes Surgery Procedure, Year, and Place: 2 hernia surgeries. partial hysterectomy - Family History Known Family History: Positive: Hypertension Negative: Diabetes - Social History Occupation: Employed Full-time Lives: With Family Alcohol Use: Occasionally Substance Use Type: Marijuana Substance Use Comment - Amount & Last Used: occassional Smoking Status (MU): Never Smoked Tobacco - Immunization History Most Recent Influenza Vaccination: 2017 Review of Systems Constitutional: Negative Skin: Negative Respiratory: Negative Cardiovascular: Negative Gastrointestinal: Abdominal Pain Neurovascular: Negative Musculoskeletal: Negative Is Patient Immunocompromised?: No All Other Systems Reviewed And Are Negative: Yes Physical Exam Triage Information Reviewed: Yes Appearance: Well-Appearing, No Pain Distress, Well-Nourished Vital Signs: Initial Vital Signs Temp 98.3 F 06/04/18 13:23 Pulse 68 06/04/18 13:23 Resp 18 06/04/18 13:23 BP 127/80 06/04/18 13:23 Pulse Ox 97 06/04/18 13:23 Vital Signs Reviewed: Yes Neck exam: Normal Neck: Positive: Supple Cardiovascular Exam: Normal Abdominal Exam: Normal Abdomen Description: Positive: Hernia @ - unable to identify d/t weight/scar tissue, Other: - tenderness to the lower abdominal wall (suprapubically). Negative: Distended, Guarding Neurological Exam: Normal Neurological: Positive: Alert Psychological: Positive: Normal Response To Family Skin Exam: Normal Abd Pain Female Course/Dx - Course Course Of Treatment: UA obtained and is normal. Was unable to appreciate a abdominal hernia. However, patient states there is scar tissue overlying. There is no erythema, ecchymosis or temperature changes to the area. No evidence of incarcerated or strangulated hernia. I believe she will need to have further evaluation of his hernia. However, I have offered her some pain control at this time and she will follow-up with surgery. I've given her referral. She is given strict return precautions for strangulated hernia. - Differential Dx/Diagnosis Provider Diagnoses: Hernia Discharge - Sign-Out/Discharge Documenting (check all that apply): Patient Departure - Discharge Plan Condition: Stable Disposition: HOME Prescriptions: traMADol TAB* [Ultram*] 50 mg PO Q8H PRN #12 tab MDD 3 PRN Reason: Pain Referrals: Caitlin Butcher MD [Primary Care Provider] - Robert Wren MD [Medical Doctor] - - Billing Disposition and Condition Condition: STABLE Disposition: Home Attestation Statement User Type: Provider - I was available for consult. This patient was seen by the [facility]. The patient was not presented to, seen by, or examined by me. -Jing
== END 2018-06-04 14:06 | disposition home or self-care (01) ==
LOC: UCEAST 13:12
DX: K46.9 Unspecified abdominal hernia without obstruction or gangrene (principal); Z98.890 Other specified postprocedural states
CPT/HCPCS: 81003; 99212; G0463

== ENCOUNTER 2018-06-24 13:01 | Emergency (ER) | payer BC ==
[2018-06-24 13:08] VITALS: BP 133/90
--- NOTE | 2018-06-24 13:42 | UC ---
Abdominal Pain Female HPI - HPI Summary HPI Summary: This is scot Nathanielbrittany Joyner documenting for attending Samy Spain . This patient is a 57 year old F presenting to [facility] with a chief complaint of ABD pain that began yesterday. Pt states 15-20 years ago she had uterus taken out and hernia repaired behind her uterus and this is the spot where the pain is. The patient rates the pain 10/10 in severity. Patient reports diffuse chronic back pain that is chronic, constipation, and decreased appetite. Patient denies fevers and dysuria. Pt states she had pain in the same spot 2 weeks ago that went away and that the pain has been intermittent for months. Pt states " I just cant do it any more, no matter what pain pill I take it just wont kill it, I cant work like this." - History of Current Complaint Chief Complaint: UCAbdominalPain Stated Complaint: ABD PAIN Time Seen by Provider: 06/24/18 13:31 Hx Obtained From: Patient Hx Last Menstrual Period: hyster Onset/Duration: Lasting Days - 1, Still Present Timing: Constant Severity Initially: Severe Severity Currently: Severe Pain Intensity: 10 Pain Scale Used: 0-10 Numeric Location: Diffuse Radiates: No Alleviating Factor(s): Nothing Associated Signs and Symptoms: Positive: Other: - diffuse chronic back pain that is chronic, constipation, vaginal bleeding, and decreased appetite. Allergies/Adverse Reactions: Allergies Allergy/AdvReac Type Severity Reaction Status Date / Time No Known Allergies Allergy Verified 06/24/18 13:09 PMH/Surg Hx/FS Hx/Imm Hx Neurological History: Other Other Neurological History: spinal meningitis Other History Of: Negative For: Anticoagulant Therapy - Surgical History Surgical History: Yes Surgery Procedure, Year, and Place: 2 hernia surgeries. partial hysterectomy - Family History Known Family History: Positive: Hypertension Negative: Diabetes - Social History Alcohol Use: Occasionally Substance Use Type: Marijuana Substance Use Comment - Amount & Last Used: occassional Smoking Status (MU): Never Smoked Tobacco Household Exposure Type: Cigarettes - Immunization History Most Recent Influenza Vaccination: 2017 Review of Systems Constitutional: Other - decreased appetite Gastrointestinal: Abdominal Pain Musculoskeletal: Other: - back pain All Other Systems Reviewed And Are Negative: Yes Physical Exam - Summary Physical Exam Summary: General: well-appearing, mild to moderate pain distress Skin: warm, color reflects adequate perfusion, dry Head: normal Eyes: EOMI, ODALIS ENT: normal Neck: supple, nontender Respiratory: CTA, breath sounds present Cardiovascular: RRR Abdomen: soft, TTP in suprapubic region Bowel: hypoactive Musculoskeletal: normal, strength/ROM intact Neurological: sensory/motor intact, A&O x3 Psychological: affect/mood appropriate Triage Information Reviewed: Yes Vital Signs: Initial Vital Signs Temp 98 F 06/24/18 13:05 Pulse 75 06/24/18 13:05 Resp 17 06/24/18 13:05 BP 133/90 06/24/18 13:05 Pulse Ox 99 06/24/18 13:05 Vital Signs Reviewed: Yes Abd Pain Female Course/Dx - Course Course Of Treatment: I RECOMMENDED GOING TO THE EMERGENCY DEPARTMENT FOR FURTHER EVALUATION OF ABDOMINAL PAIN. - Differential Dx/Diagnosis Provider Diagnoses: ABDOMINAL PAIN Discharge - Sign-Out/Discharge Documenting (check all that apply): Patient Departure - Discharge Plan Condition: Stable Disposition: HOME-RECOMMEND TO ED Patient Education Materials: Acute Abdominal Pain (ED) Referrals: Caitlin Butcher MD [Primary Care Provider] - Additional Instructions: GO DIRECTLY TO THE EMERGENCY DEPARTMENT FOR FURTHER EVALUATION OF YOUR ABDOMINAL PAIN. - Billing Disposition and Condition Condition: STABLE Disposition: Home-Recommend to ED
== END 2018-06-24 13:50 | disposition home health service (06) ==
LOC: UCEAST 13:01
DX: R10.84 Generalized abdominal pain (principal); Z90.710 Acquired absence of both cervix and uterus; Z82.49 Family history of ischemic heart disease and other diseases of the circulatory system
CPT/HCPCS: 99212; G0463

== ENCOUNTER → 2018-06-24 14:16 | Emergency (ER) | payer BC ==
[~2018-06-24 14:16] MED LIST: Iohexol 300* (CONTRAST) 10 ML SDV IV ONE; Metoclopramide TAB* 10 MG PO ONE; Morphine VIAL* 10 MG/ML 1 ML VIAL IV ONE; NS 0.9% 1000 ML* 1,000 ML IV ONE
--- NOTE | 2018-06-24 16:05 | ED ---
Abdominal Pain/Female - HPI Summary HPI Summary: This is scribe Guy Jesus documenting for attending Dr. Scott Steinberg. This patient is a 57 year old F presenting to [facility] accompanied by_ with a chief complaint of 10/10 diffuse lower abd pain since 1330 06/23/18. Pt denies N/ V. SHx 15-20 years ago hysterectomy and hernia repair in same area, due to enlarged uterus. Pt endorses similar pain currently, and spotting this AM. Pt takes Tylenol to no avail. I, Dr. Chavez personally performed the services described in this documentation as scribed in my presence and it is both accurate and complete. - History of Current Complaint Chief Complaint: EDAbdPain Stated Complaint: ABD PAIN Time Seen by Provider: 06/24/18 15:47 Hx Obtained From: Patient Hx Last Menstrual Period: hyster Onset/Duration: Sudden Onset, Lasting Days, Still Present Timing: Constant Severity Initially: Severe Severity Currently: Severe Pain Intensity: 10 Pain Scale Used: 0-10 Numeric Location: Diffuse - lower abdomen Radiates: No Aggravating Factor(s): Nothing Alleviating Factor(s): Nothing Associated Signs and Symptoms: Positive: Vaginal Bleeding. Negative: Fever, Nausea, Vomiting Simlar Episode/Dx as:: describes pain today as similar to pain experienced pre- hysterectomy 15 y/a Allergies/Adverse Reactions: Allergies Allergy/AdvReac Type Severity Reaction Status Date / Time No Known Allergies Allergy Verified 06/24/18 14:37 PMH/Surg Hx/FS Hx/Imm Hx Endocrine/Hematology History: Denies: Hx Anticoagulant Therapy, Hx Diabetes, Hx Thyroid Disease Cardiovascular History: Denies: Hx Hypertension Respiratory History: Denies: Hx Asthma, Hx Chronic Obstructive Pulmonary Disease (COPD) GI History: Denies: Hx Ulcer Sensory History: Reports: Hx Contacts or Glasses Denies: Hx Legally Blind, Hx Deafness Opthamlomology History: Reports: Hx Contacts or Glasses Denies: Hx Legally Blind EENT History: Denies: Hx Deafness Psychiatric History: Denies: Hx Schizophrenia - Cancer History Cancer Type, Location and Year: denies - Surgical History Surgery Procedure, Year, and Place: 2 hernia surgeries. partial hysterectomy ( 15-20 years ago) Infectious Disease History: No Infectious Disease History: Denies: Hx Clostridium Difficile, Hx Hepatitis, Hx Human Immunodeficiency Virus (HIV), Hx of Known/Suspected MRSA, Hx Shingles, Hx Tuberculosis, Hx Known/ Suspected VRE, Hx Known/Suspected VRSA, History Other Infectious Disease, Traveled Outside the [place] in Last 30 Days - Family History Known Family History: Positive: Hypertension Negative: Diabetes - Social History Alcohol Use: Occasionally Hx Substance Use: Yes Substance Use Type: Reports: Marijuana Substance Use Comment - Amount & Last Used: occassional Smoking Status (MU): Never Smoked Tobacco Review of Systems Negative: Fever Positive: Abdominal Pain. Negative: Vomiting, Nausea Positive: discharge - vaginal spotting All Other Systems Reviewed And Are Negative: Yes Physical Exam - Summary Physical Exam Summary: VITAL SIGNS: Reviewed. GENERAL: Patient is a well-developed and nourished female who is lying comfortable in the stretcher. Patient is not in any acute respiratory distress. HEAD AND FACE: Normocephalic and atraumatic. EYES: PERRLA, EOMI x 2, No injected conjunctiva. EARS: Hearing grossly intact. Ear canals and tympanic membranes are WNL. MOUTH: Oropharynx within normal limits. NECK: Supple, trachea is midline, no adenopathy, no JVD. CHEST: Symmetric, no tenderness at palpation LUNGS: Clear to auscultation bilaterally. No wheezing or crackles. CVS: RRR, S1 and S2 present, no murmurs or gallops appreciated. ABDOMEN: Soft, lower abdominal tenderness. No signs of distention. Positive bowel sounds. No rebound, no guarding, and no masses palpated. No abdominal bruit or pulsations. EXTREMITIES: FROM in all major joints, no edema, no cyanosis or clubbing. NEURO: Alert and oriented x 3. No acute neurological deficits. Speech is normal. SKIN: Dry and warm Triage Information Reviewed: Yes Vital Signs On Initial Exam: Initial Vitals Temp Pulse Resp BP Pulse Ox 99 F 68 20 125/88 94 06/24/18 14:32 06/24/18 14:32 06/24/18 14:32 06/24/18 14:32 06/24/18 14:32 Vital Signs Reviewed: Yes Diagnostics - Vital Signs Vital Signs Temp Pulse Resp BP Pulse Ox 06/24/18 14:32 99 F 68 20 125/88 94 - Laboratory Result Diagrams: 06/24/18 16:17 06/24/18 16:17 Lab Statement: Any lab studies that have been ordered have been reviewed, and results considered in the medical decision making process. - EKG 1628 Cardiac Rate: NL - 61 EKG Rhythm: Sinus Rhythm ST Segment: Normal Ectopy: None EKG Interpretation: no STEMI, nl axis. Abdominal Pain Fem Course/Dx - Course Course Of Treatment: Patient is a 57-year-old female who presents to the emergency department with a chief complaint of lower abdominal pain. Blood test results without any significant abnormality, urinalysis is negative for UTI. In the ED course the patient was given IV fluids and morphine for the pain. The patient was awaiting for an abdominopelvic CT. The patient reports that she is feeling better the pain has decreased. Patient is hemodynamically stable. The patient will be signed out at shift change to Dr. Brambila who is the next ER attending. Patient is hemodynamically stable. - Diagnoses Provider Diagnoses: Abdominal pain Discharge - Sign-Out/Discharge Documenting (check all that apply): Sign-Out Patient Signing out patient TO: Gisela Brambila - CT A/P - Discharge Plan Referrals: Caitlin Butcher MD [Primary Care Provider] -
[2018-06-24 16:27] LABS: ABS Basophils 0.1 10^3/ul (0-0.2); ABS Eosinophils 0.1 10^3/ul (0-0.6); ABS Lymphocytes 2.1 10^3/ul (1.0-4.8); ABS Monocytes 0.6 10^3/ul (0-0.8); ABS Neutrophils 3.4 10^3/ul (1.5-7.7); ABS Nucleated RBC 0 10^3/ul; Eosinophil % 2.3 % (0-6); Hematocrit 44 % (35-47); Hemoglobin 15.2 g/dl (12.0-16.0); Lymphocyte % 33.7 % (25-47); Mean Corpuscular HGB Conc 34 g/dl (31-36); Mean Corpuscular Hemoglobin 30 pg (27-31); Mean Corpuscular Volume 87 fL (80-97); Mean Platelet Volume 8.6 um3 (7.4-10.4); Nucleated Red Blood Cells % 0; Platelet Count 259 10^3/ul (150-450); Red Blood Count 5.13 10^6/ul (4.00-5.40); Red Cell Distribution Width 13 % (10.5-15); White Blood Count 6.3 10^3/ul (3.5-10.8)
[2018-06-24 16:44] LABS: EGFR Non-African American 89.5 (>60)
[2018-06-24 16:58] LABS: Urine Appearance Clear; Urine Blood Negative (Negative); Urine Color Yellow; Urine Ketones Negative (Negative); Urine Protein Negative (Negative); Urine Red Blood Cell Trace(0-2/hpf) (Absent); Urine Specific Gravity 1.009 (1.010-1.030); Urine Urobilinogen Negative (Negative); Urine White Blood Cell Trace(0-5/hpf) (Absent)
--- NOTE | 2018-06-24 19:08 | ED ---
Progress - Progress Note Progress Note: This is scribe Marcelo Clay documenting for attending David Brambila MD. Patient is a 57-year-old female who presents to the emergency department with a chief complaint of lower abdominal pain. The patient was awaiting for an abdominopelvic CT. Patient was received from Dr. Chavez at a shift change to Dr. Brambila. I, Dr. Brambila, personally performed the services described in this documentation as scribed in my presence and it is both accurate and complete. Re-Evaluation - Re-Evaluation 1 Re-Evaluation Time: 20:35 Comment: Patient informed of imaging results and told that they were okay to go home. Course/Dx - Diagnoses Provider Diagnoses: Abdominal pain Discharge - Sign-Out/Discharge Documenting (check all that apply): Patient Departure - D/C, Receiving Sign-Out Signing out patient TO: Gisela Brambila Receiving patient FROM: Abdulaziz Chavez - Discharge Plan Condition: Stable Disposition: HOME Patient Education Materials: Abdominal Pain (ED) Referrals: Caitlin Butcher MD [Primary Care Provider] - Additional Instructions: RETURN TO THE EMERGENCY DEPARTMENT FOR CHANGING OR WORSENING SYMPTOMS. Diagnostics - Vital Signs Vital Signs Temp Pulse Resp BP Pulse Ox 06/24/18 16:37 16 06/24/18 14:32 99 F 68 20 125/88 94 - Laboratory Lab Results: Lab Results 06/24/18 06/24/18 06/24/18 Range/Units 16:17 16:17 16:17 WBC 6.3 (3.5-10.8) 10^3/ul RBC 5.13 (4.00-5.40) 10^6/ul Hgb 15.2 (12.0-16.0) g/dl Hct 44 (35-47) % MCV 87 (80-97) fL MCH 30 (27-31) pg MCHC 34 (31-36) g/dl RDW 13 (10.5-15) % Plt Count 259 (150-450) 10^3/ul MPV 8.6 (7.4-10.4) um3 Neut % (Auto) 54.3 (38-83) % Lymph % (Auto) 33.7 (25-47) % [place] % (Auto) 8.8 H (0-7) % Eos % (Auto) 2.3 (0-6) % Baso % (Auto) 0.9 (0-2) % Absolute Neuts (auto) 3.4 (1.5-7.7) 10^3/ul Absolute Lymphs (auto) 2.1 (1.0-4.8) 10^3/ul Absolute Monos (auto) 0.6 (0-0.8) 10^3/ul Absolute Eos (auto) 0.1 (0-0.6) 10^3/ul Absolute Basos (auto) 0.1 (0-0.2) 10^3/ul Absolute Nucleated RBC 0 10^3/ul Nucleated RBC % 0 Sodium 139 (135-145) mmol/L Potassium 3.9 (3.5-5.0) mmol/L Chloride 110 (101-111) mmol/L Carbon Dioxide 23 (22-32) mmol/L Anion Gap 6 (2-11) mmol/L BUN 14 (6-24) mg/dL Creatinine 0.68 (0.51-0.95) mg/dL Est GFR ( Amer) 108.3 (>60) Est GFR (Non-Af Amer) 89.5 (>60) BUN/Creatinine Ratio 20.6 H (8-20) Glucose 97 (70-100) mg/dL Calcium 9.7 (8.6-10.3) mg/dL Total Bilirubin 0.60 (0.2-1.0) mg/dL AST 19 (13-39) U/L ALT 18 (7-52) U/L Alkaline Phosphatase 49 (34-104) U/L Total Creatine Kinase 133 (10-223) U/L Troponin I 0.00 (<0.04) ng/mL C-Reactive Protein 1.25 (<8.01) mg/L B-Natriuretic Peptide 14 ( - 100) pg/mL Total Protein 6.7 (6.4-8.9) g/dL Albumin 4.0 (3.2-5.2) g/dL Globulin 2.7 (2-4) g/dL Albumin/Globulin Ratio 1.5 (1-3) Amylase 48 (29-103) U/L Lipase < 10 L (11.0-82.0) U/L Urine Color Urine Appearance Urine pH (5-9) Ur Specific [place] (1.010-1.030) Urine Protein (Negative) Urine Ketones (Negative) Urine Blood (Negative) Urine Nitrate (Negative) Urine Bilirubin (Negative) Urine Urobilinogen (Negative) Ur Leukocyte Esterase (Negative) Urine WBC (Auto) (Absent) Urine RBC (Auto) (Absent) Ur Squamous Epith Cells (Absent) Urine Bacteria (Absent) Urine Glucose (Negative) 06/24/18 Range/Units 16:39 WBC (3.5-10.8) 10^3/ul RBC (4.00-5.40) 10^6/ul Hgb (12.0-16.0) g/dl Hct (35-47) % MCV (80-97) fL MCH (27-31) pg MCHC (31-36) g/dl RDW (10.5-15) % Plt Count (150-450) 10^3/ul MPV (7.4-10.4) um3 Neut % (Auto) (38-83) % Lymph % (Auto) (25-47) % [place] % (Auto) (0-7) % Eos % (Auto) (0-6) % Baso % (Auto) (0-2) % Absolute Neuts (auto) (1.5-7.7) 10^3/ul Absolute Lymphs (auto) (1.0-4.8) 10^3/ul Absolute Monos (auto) (0-0.8) 10^3/ul Absolute Eos (auto) (0-0.6) 10^3/ul Absolute Basos (auto) (0-0.2) 10^3/ul Absolute Nucleated RBC 10^3/ul Nucleated RBC % Sodium (135-145) mmol/L Potassium (3.5-5.0) mmol/L Chloride (101-111) mmol/L Carbon Dioxide (22-32) mmol/L Anion Gap (2-11) mmol/L BUN (6-24) mg/dL Creatinine (0.51-0.95) mg/dL Est GFR ( Amer) (>60) Est GFR (Non-Af Amer) (>60) BUN/Creatinine Ratio (8-20) Glucose (70-100) mg/dL Calcium (8.6-10.3) mg/dL Total Bilirubin (0.2-1.0) mg/dL AST (13-39) U/L ALT (7-52) U/L Alkaline Phosphatase (34-104) U/L Total Creatine Kinase (10-223) U/L Troponin I (<0.04) ng/mL C-Reactive Protein (<8.01) mg/L B-Natriuretic Peptide ( - 100) pg/mL Total Protein (6.4-8.9) g/dL Albumin (3.2-5.2) g/dL Globulin (2-4) g/dL Albumin/Globulin Ratio (1-3) Amylase (29-103) U/L Lipase (11.0-82.0) U/L Urine Color Yellow Urine Appearance Clear Urine pH 7.0 (5-9) Ur Specific [place] 1.009 L (1.010-1.030) Urine Protein Negative (Negative) Urine Ketones Negative (Negative) Urine Blood Negative (Negative) Urine Nitrate Negative (Negative) Urine Bilirubin Negative (Negative) Urine Urobilinogen Negative (Negative) Ur Leukocyte Esterase Trace A (Negative) Urine WBC (Auto) Trace(0-5/hpf) (Absent) Urine RBC (Auto) Trace(0-2/hpf) (Absent) Ur Squamous Epith Cells Present A (Absent) Urine Bacteria 1+ A (Absent) Urine Glucose Negative (Negative) Result Diagrams: 06/24/18 16:17 06/24/18 16:17 Lab Statement: Any lab studies that have been ordered have been reviewed, and results considered in the medical decision making process. - CT Abd/Pelvic CT CT Interpretation Completed By: Radiologist - 19:17. Normal appendix documented. Mild colonic diverticulosis without findings of acute diverticulitis. Gastric distention without additional CT abnormality of the stomach. Post hysterectomy. Unremarkable adnexal regions. Negative for obstructive uropathy. ED Physician has reviewed this imaging report. - EKG 1628 Cardiac Rate: NL - 61 EKG Rhythm: Sinus Rhythm ST Segment: Normal Ectopy: None EKG Interpretation: no STEMI, nl axis.
--- NOTE | 2018-06-24 19:20 | RAD ---
INDICATION: Lower abdominal pain began yesterday; progression. 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 Previous hernia repair. COMPARISON: December 31, 2017 TECHNIQUE: Multidetector CT images were obtained from the lung bases to the ischial tuberosities with 85 mL Omnipaque 300 IV and oral contrast. Multiplanar reformation. REPORT: VISUALIZED INFERIOR THORAX: Mild bibasilar dependent atelectasis. Mild cardiomegaly. LIVER / GALLBLADDER / PANCREAS / SPLEEN: Unremarkable liver, gallbladder, and spleen. Moderate atrophy of the pancreas without suspicious finding. ALIMENTARY TRACT: Significant gastric distention with oral contrast without additional CT abnormality of the stomach or remainder of the upper GI. Unremarkable small bowel loops and infra cecal appendix. Mild colonic diverticulosis without findings of acute diverticulitis. Negative for ascites, free air, hernias. MESENTERIC: A few normal size short axis diameter small bowel mesentery lymph nodes are visualized measuring up to 0.6 cm short axis. Minimal increased density/edema in the small bowel mesentery. No mesenteric mass evident. ADRENAL / GENITOURINARY: Normal adrenal glands. Unremarkable kidneys with symmetric nephrograms and pyelograms. Unremarkable nondilated ureters and partially distended urinary bladder. Post hysterectomy. Unremarkable adnexal regions. RETROPERITONEAL: Negative for lymphadenopathy. VASCULAR: Normal diameter abdominal aorta and iliac arteries. Normal variant circumaortic LEFT renal vein. Physiologic distention of the IVC. BONES: Negative for suspicious osseous lesions. Negative for fracture or articular malalignment. SOFT TISSUE: Unremarkable. IMPRESSION: #. Normal appendix documented. Mild colonic diverticulosis without findings of acute diverticulitis. #. Gastric distention without additional CT abnormality of the stomach. #. Post hysterectomy. Unremarkable adnexal regions. #. Negative for obstructive uropathy.
[2018-06-24 21:09] VITALS: BP 136/86
== END | disposition home or self-care (01) ==
LOC: ED 14:16
DX: R10.30 Lower abdominal pain, unspecified (principal); K31.89 Other diseases of stomach and duodenum; Z90.710 Acquired absence of both cervix and uterus
CPT/HCPCS: 36415; 74177; 80053; 81003; 81015; 82150; 82550; 83690; 83880; 84484; 85025; 86140; 87086; 93005; 96374; 99283; A9270-GY; J2270; Q9967

== ENCOUNTER 2019-03-27 16:37 | Emergency (ER) | payer BC, OTHER ==
--- NOTE | 2019-03-27 17:23 | ED ---
Back Pain - HPI Summary HPI Summary: This patient is a 58 year old F presenting to [facility] accompanied by her mother with a chief complaint of middle to upper back pain wraps around the back for the past week. Pain rated 10/10 in severity. Patient is able to ambulate and denies CP, incontinence, leg pain, and loss of sensation in extremities. Pain causes difficulty moving from sitting to standing position. Patient took an Advil and hour ago without relief. - History of Current Complaint Chief Complaint: EDBackInjuryPain Stated Complaint: BACK PAIN PER PT Hx Obtained From: Patient Hx Last Menstrual Period: hyster Onset/Duration: Lasting Weeks Onset/Duration: Started Weeks Ago Timing: Constant Back Pain Location: Is Discrete @ - mid/upper back Severity Currently: Severe Pain Intensity: 10 Pain Scale Used: 0-10 Numeric Aggravating Symptom(s): Movement Alleviating Symptom(s): Nothing Associated Signs And Symptoms: Negative: Weakness, Numbness, Tingling, Bladder Incontinence, Bowel Incontinence - Allergies/Home Medications Allergies/Adverse Reactions: Allergies Allergy/AdvReac Type Severity Reaction Status Date / Time No Known Allergies Allergy Verified 03/27/19 16:38 PMH/Surg Hx/FS Hx/Imm Hx Endocrine/Hematology History: Denies: Hx Anticoagulant Therapy, Hx Diabetes, Hx Thyroid Disease Cardiovascular History: Denies: Hx Hypertension Respiratory History: Denies: Hx Asthma, Hx Chronic Obstructive Pulmonary Disease (COPD) GI History: Denies: Hx Ulcer Sensory History: Reports: Hx Contacts or Glasses Denies: Hx Legally Blind, Hx Deafness Opthamlomology History: Reports: Hx Contacts or Glasses Denies: Hx Legally Blind Psychiatric History: Denies: Hx Schizophrenia - Cancer History Cancer Type, Location and Year: denies - Surgical History Surgery Procedure, Year, and Place: 2 hernia surgeries. partial hysterectomy ( 15-20 years ago) Infectious Disease History: No Infectious Disease History: Denies: Hx Clostridium Difficile, Hx Hepatitis, Hx Human Immunodeficiency Virus (HIV), Hx of Known/Suspected MRSA, Hx Shingles, Hx Tuberculosis, Hx Known/ Suspected VRE, Hx Known/Suspected VRSA, History Other Infectious Disease, Traveled Outside the [place] in Last 30 Days - Family History Known Family History: Positive: Hypertension Negative: Diabetes - Social History Alcohol Use: Occasionally Hx Substance Use: Yes Substance Use Type: Reports: Marijuana Substance Use Comment - Amount & Last Used: occassional Smoking Status (MU): Never Smoked Tobacco Review of Systems Negative: Chest Pain Gastrointestinal: Negative Positive: no symptoms reported Positive: Myalgia - back pain Negative: Weakness, Paresthesia All Other Systems Reviewed And Are Negative: Yes Physical Exam - Summary Physical Exam Summary: Appearance: Well-appearing, Well-nourished, middle aged woman in obvious pain Skin: Warm, dry, no obvious rash Eyes: sclera anicteric, no conjunctival pallor ENT: mucous membranes moist, pharynx appears normal Neck: Supple, nontender Respiratory: Clear to auscultation, no signs of respiratory distress Cardiovascular: Normal S1, S2. No murmurs. Normal distal pulses in tibial and radial bilaterally. Abdomen: Soft, nontender, normal active bowel sounds present Musculoskeletal: Strength/ROM Intact focal paraspinus tenderness in musculature and mid back with some muscle spasm, no CVA tenderness Neurological: A&Ox3, awake and alert, mentation is normal, speech is fluent and appropriate Psychiatric: affect is normal, does not appear anxious or depressed Triage Information Reviewed: Yes Vital Signs On Initial Exam: Initial Vitals Temp Pulse Resp BP Pulse Ox 98.2 F 77 16 146/90 100 03/27/19 16:39 03/27/19 16:39 03/27/19 16:39 03/27/19 16:39 03/27/19 16:39 Vital Signs Reviewed: Yes Diagnostics - Vital Signs Vital Signs Temp Pulse Resp BP Pulse Ox 03/27/19 16:39 98.2 F 77 16 146/90 100 - Laboratory Result Diagrams: 03/27/19 17:34 03/27/19 17:34 Lab Statement: Any lab studies that have been ordered have been reviewed, and results considered in the medical decision making process. - Radiology CXR Radiology Interpretation Completed By: Radiologist Summary of Radiographic Findings: NO EVIDENCE FOR ACTIVE CARDIOPULMONARY DISEASE. ED Physician has reviewed this report. Thoracic Spine XR Radiology Interpretation Completed By: Radiologist Summary of Radiographic Findings: MILD COMPRESSION FRACTURE OF AN UPPER DORSAL VERTEBRAL BODY, AGE. INDETERMINATE. ED Physician has reviewed this report. Back Pain Course/Dx - Course Course Of Treatment: 58 year old F presenting to [facility] accompanied by her mother with a chief complaint of middle to upper back pain wraps around the back for the past week. Patient is in obvious pain distress and given 10mg of oxycodone. CXR reveals, " NO EVIDENCE FOR ACTIVE CARDIOPULMONARY DISEASE." T- Spine XR reveals, " MILD COMPRESSION FRACTURE OF AN UPPER DORSAL VERTEBRAL BODY , AGE. INDETERMINATE.". Results discussed with patient. She is instructed to follow up with her Primary care provider and is given a prescription for oxycodone. Patient is agreeable with this plan. - Diagnoses Provider Diagnoses: Back pain Discharge - Sign-Out/Discharge Documenting (check all that apply): Patient Departure - discharge Patient Received Moderate/Deep Sedation with Procedure: No - Discharge Plan Condition: Improved Disposition: HOME Prescriptions: oxyCODONE/Acetamin 5/325 MG* [Percocet 5/325 TAB*] 1 tab PO Q4H PRN #15 tab MDD 6 tabs PRN Reason: Pain Patient Education Materials: Back Pain (ED) Referrals: Caitlin Butcher MD [Primary Care Provider] - 3 Days - Billing Disposition and Condition Condition: IMPROVED Disposition: Home - Attestation Statements Document Initiated by Scribe: Yes Documenting Scribe: Cori Small Provider For Whom Cristóbal is Documenting (Include Credential): Rigoberto Johnston MD Scribe Attestation: Cori Chao, scribed for Rigoberto Johnston MD on 03/30/19 at 1112. Scribe Documentation Reviewed: Yes Provider Attestation: The documentation as recorded by the Cori ellison accurately reflects the service I personally performed and the decisions made by Rigoberto gold MD Status of Scribe Document: Viewed
[2019-03-27] MEDS ORDERED: oxyCODONE TAB* 5 MG TAB PO ONE (17:25)
[2019-03-27 17:46] LABS: ABS Basophils 0.1 10^3/ul (0-0.2); ABS Eosinophils 0.2 10^3/ul (0-0.6); ABS Lymphocytes 2.8 10^3/ul (1.0-4.8); ABS Monocytes 0.7 10^3/ul (0-0.8); ABS Neutrophils 4.7 10^3/ul (1.5-7.7); Eosinophil % 1.9 %; Hematocrit 47 % (35-47); Hemoglobin 16.1 g/dL (12.0-16.0); Mean Corpuscular HGB Conc 34 g/dL (31-36); Mean Corpuscular Hemoglobin 30 pg (27-31); Mean Corpuscular Volume 88 fL (80-97); Mean Platelet Volume 9.3 fL (7.4-10.4); Nucleated Red Blood Cells % 0.1; Platelet Count 242 10^3/uL (150-450); Red Blood Count 5.36 10^6 /uL (3.70-4.87); Red Cell Distribution Width 13 % (10.5-15); White Blood Count 8.4 10^3/uL (3.5-10.8)
[2019-03-27 18:02] LABS: ALT 13 U/L (7-52); AST 18 U/L (13-39); Albumin 4.2 g/dL (3.2-5.2); Albumin/Globulin Ratio 1.4 (1-3); Alkaline Phosphatase 50 U/L (34-104); Anion Gap 8 mmol/L (2-11); BUN/Creatinine Ratio 13.7 (8-20); Blood Urea Nitrogen 10 mg/dL (6-24); C Reactive Protein < 1.00 mg/L (<8.01); CO2 Carbon Dioxide 22 mmol/L (22-32); Chloride 109 mmol/L (101-111); EGFR African American 99.4 (>60); EGFR Non-African American 82.2 (>60); Glucose 95 mg/dL (70-100); Potassium 3.7 mmol/L (3.5-5.0); Sodium 139 mmol/L (135-145); Total Protein 7.2 g/dL (6.4-8.9)
[2019-03-27 19:50] VITALS: BP 141/84
== END 2019-03-27 19:25 | disposition home or self-care (01) ==
LOC: ED 16:37
DX: M54.6 Pain in thoracic spine (principal)
CPT/HCPCS: 36415; 71046; 72070; 80053; 85025; 86140; 99282; A9270-GY

== ENCOUNTER 2019-04-25 16:06 | Emergency (ER) | payer OTHER ==
[2019-04-25] MEDS ORDERED: NS 0.9% 1000 ML** 1,000 ML IV ONE (17:41)
[2019-04-25] MEDS ORDERED: Ondansetron INJ* 2 MG/ML VIAL IV ONE (17:42)
[2019-04-25] MEDS ORDERED: Meclizine TAB* 12.5 MG PO ONE ×2 (17:42→19:19)
[2019-04-25 17:58] LABS: ABS Eosinophils 0.2 10^3/ul (0-0.6); ABS Lymphocytes 1.9 10^3/ul (1.0-4.8); ABS Monocytes 1.2 10^3/ul (0-0.8); Eosinophil % 1.5 %; Hematocrit 51 % (35-47); Lymphocyte % 15.5 %; Mean Corpuscular HGB Conc 34 g/dL (31-36); Mean Corpuscular Hemoglobin 30 pg (27-31); Mean Corpuscular Volume 88 fL (80-97); Mean Platelet Volume 8.7 fL (7.4-10.4); Nucleated Red Blood Cells % 0.1; Platelet Count 251 10^3/uL (150-450); Red Blood Count 5.75 10^6 /uL (3.70-4.87); Red Cell Distribution Width 13 % (10-15); White Blood Count 12.4 10^3/uL (3.5-10.8)
[2019-04-25 18:17] LABS: Albumin 4.2 g/dL (3.2-5.2); Albumin/Globulin Ratio 1.3 (1-3); BUN/Creatinine Ratio 29.2 (8-20); EGFR Non-African American 83.5 (>60); Globulin 3.2 g/dL (2-4); Potassium 3.9 mmol/L (3.5-5.0); Total Bilirubin 0.8 mg/dL (0.2-1.0); Total Protein 7.4 g/dL (6.4-8.9)
[2019-04-25 18:36] LABS: TSH (Thyroid Stimulating Horm) 3.63 mcIU/mL (0.34-5.60)
[2019-04-25 18:55] LABS: Urine Appearance Cloudy; Urine Bacteria 3+ (Absent); Urine Bilirubin 2+ (Negative); Urine Blood Negative (Negative); Urine Color Amber; Urine Glucose Negative (Negative); Urine Ketones 1+ (Negative); Urine Nitrite Negative (Negative); Urine Protein Negative (Negative); Urine Red Blood Cell Trace(0-2/hpf) (Absent); Urine Specific Gravity 1.027 (1.010-1.030); Urine Squamous Epithelial Cell Present (Absent); Urine Urobilinogen Positive (Negative); Urine White Blood Cell 1+(6-10/hpf) (Absent)
--- NOTE | 2019-04-25 18:57 | ED ---
Dizziness - HPI Summary HPI Summary: 58-year-old female presents with dizziness since last night. She states it is worse with positional changes and when she moves her head. She states that feeling like she is going to pass out. She denies any chest pain or shortness breath. No headache. No change in vision. She states she has any nausea and vomiting. She's been taking oxycodone on empty stomach. States every time she states that every time she takes oxycodone it makes her symptoms worse. She's had her teeth extracted has not been able to eat and drink much. She she feels very weak and dehydrated. Denies any urinary symptoms. No bowel pain. - History Of Current Complaint Chief Complaint: EDDizziness Stated Complaint: DIZZY PER PT Time Seen by Provider: 04/25/19 17:36 - Allergies/Home Medications Allergies/Adverse Reactions: Allergies Allergy/AdvReac Type Severity Reaction Status Date / Time No Known Allergies Allergy Verified 03/27/19 16:38 PMH/Surg Hx/FS Hx/Imm Hx Endocrine/Hematology History: Denies: Hx Anticoagulant Therapy, Hx Diabetes, Hx Thyroid Disease Cardiovascular History: Denies: Hx Hypertension Respiratory History: Denies: Hx Asthma, Hx Chronic Obstructive Pulmonary Disease (COPD) GI History: Denies: Hx Ulcer Sensory History: Reports: Hx Contacts or Glasses Denies: Hx Legally Blind, Hx Deafness Opthamlomology History: Reports: Hx Contacts or Glasses Denies: Hx Legally Blind Psychiatric History: Denies: Hx Schizophrenia - Cancer History Cancer Type, Location and Year: denies - Surgical History Surgery Procedure, Year, and Place: 2 hernia surgeries. partial hysterectomy ( 15-20 years ago) Infectious Disease History: No Infectious Disease History: Denies: Hx Clostridium Difficile, Hx Hepatitis, Hx Human Immunodeficiency Virus (HIV), Hx of Known/Suspected MRSA, Hx Shingles, Hx Tuberculosis, Hx Known/ Suspected VRE, Hx Known/Suspected VRSA, History Other Infectious Disease, Traveled Outside the [place] in Last 30 Days - Family History Known Family History: Positive: Hypertension Negative: Diabetes - Social History Alcohol Use: Occasionally Hx Substance Use: Yes Substance Use Type: Reports: Marijuana Substance Use Comment - Amount & Last Used: occassional Smoking Status (MU): Never Smoked Tobacco Review of Systems Negative: Fever Negative: Chest Pain Negative: Shortness Of Breath, Cough Positive: Vomiting, Nausea. Negative: Abdominal Pain, Diarrhea Neurological: Other - dizziness Negative: Headache All Other Systems Reviewed And Are Negative: Yes Physical Exam Triage Information Reviewed: Yes Vital Signs On Initial Exam: Initial Vitals Temp Pulse Resp BP Pulse Ox 97.2 F 112 16 136/103 94 04/25/19 16:09 04/25/19 16:09 04/25/19 16:09 04/25/19 16:09 04/25/19 16:09 Vital Signs Reviewed: Yes Appearance: Positive: Well-Appearing Skin: Positive: Warm, Dry Head/Face: Positive: Normal Head/Face Inspection Eyes: Positive: Normal, EOMI, ODALIS, Conjunctiva Clear ENT: Positive: Normal ENT inspection, Pharynx normal, TMs normal Respiratory/Lung Sounds: Positive: Clear to Auscultation, Breath Sounds Present Cardiovascular: Positive: Normal, RRR Abdomen Description: Positive: Nontender, Soft Bowel Sounds: Positive: Present Musculoskeletal: Positive: Normal Neurological: Positive: Sensory/Motor Intact, Alert, Oriented to Person Place, Time, CN Intact II-III Psychiatric: Positive: Normal Diagnostics - Vital Signs Vital Signs Temp Pulse Resp BP Pulse Ox 04/25/19 18:26 92 18 136/80 92 04/25/19 18:00 15 04/25/19 17:53 97 11 139/102 91 04/25/19 17:23 103 18 143/108 95 04/25/19 17:21 27 04/25/19 16:09 97.2 F 112 16 136/103 94 - Laboratory Lab Results: Lab Results 04/25/19 04/25/19 04/25/19 Range/Units 17:50 17:50 17:50 WBC 12.4 H (3.5-10.8) 10^3/uL RBC 5.75 H (3.70-4.87) 10^6 /uL Hgb 17.0 H (12.0-16.0) g/dL Hct 51 H (35-47) % MCV 88 (80-97) fL MCH 30 (27-31) pg MCHC 34 (31-36) g/dL RDW 13 (10-15) % Plt Count 251 (150-450) 10^3/uL MPV 8.7 (7.4-10.4) fL Neut % (Auto) 72.7 % Lymph % (Auto) 15.5 % Reagan % (Auto) 9.9 % Eos % (Auto) 1.5 % Baso % (Auto) 0.4 % Absolute Neuts (auto) 9.0 H (1.5-7.7) 10^3/ul Absolute Lymphs (auto) 1.9 (1.0-4.8) 10^3/ul Absolute Monos (auto) 1.2 H (0-0.8) 10^3/ul Absolute Eos (auto) 0.2 (0-0.6) 10^3/ul Absolute Basos (auto) 0.0 (0-0.2) 10^3/ul Absolute Nucleated RBC 0.0 10^3/ul Nucleated RBC % 0.1 Sodium 138 (135-145) mmol/L Potassium 3.9 (3.5-5.0) mmol/L Chloride 107 (101-111) mmol/L Carbon Dioxide 21 L (22-32) mmol/L Anion Gap 10 (2-11) mmol/L BUN 21 (6-24) mg/dL Creatinine 0.72 (0.51-0.95) mg/dL Est GFR ( Amer) 101.0 (>60) Est GFR (Non-Af Amer) 83.5 (>60) BUN/Creatinine Ratio 29.2 H (8-20) Glucose 116 H (70-100) mg/dL Lactic Acid 0.8 (0.5-2.0) mmol/L Calcium 10.0 (8.6-10.3) mg/dL Magnesium 2.0 (1.9-2.7) mg/dL Total Bilirubin 0.80 (0.2-1.0) mg/dL AST 56 H (13-39) U/L ALT 70 H (7-52) U/L Alkaline Phosphatase 80 (34-104) U/L Troponin I 0.00 (<0.04) ng/mL B-Natriuretic Peptide (<=100) pg/mL Total Protein 7.4 (6.4-8.9) g/dL Albumin 4.2 (3.2-5.2) g/dL Globulin 3.2 (2-4) g/dL Albumin/Globulin Ratio 1.3 (1-3) TSH 3.63 (0.34-5.60) mcIU/mL Urine Color Urine Appearance Urine pH (5-9) Ur Specific [place] (1.010-1.030) Urine Protein (Negative) Urine Ketones (Negative) Urine Blood (Negative) Urine Nitrate (Negative) Urine Bilirubin (Negative) Urine Urobilinogen (Negative) Ur Leukocyte Esterase (Negative) Urine WBC (Auto) (Absent) Urine RBC (Auto) (Absent) Ur Squamous Epith Cells (Absent) Urine Bacteria (Absent) Urine Glucose (Negative) 04/25/19 04/25/19 Range/Units 17:50 18:41 WBC (3.5-10.8) 10^3/uL RBC (3.70-4.87) 10^6 /uL Hgb (12.0-16.0) g/dL Hct (35-47) % MCV (80-97) fL MCH (27-31) pg MCHC (31-36) g/dL RDW (10-15) % Plt Count (150-450) 10^3/uL MPV (7.4-10.4) fL Neut % (Auto) % Lymph % (Auto) % Reagan % (Auto) % Eos % (Auto) % Baso % (Auto) % Absolute Neuts (auto) (1.5-7.7) 10^3/ul Absolute Lymphs (auto) (1.0-4.8) 10^3/ul Absolute Monos (auto) (0-0.8) 10^3/ul Absolute Eos (auto) (0-0.6) 10^3/ul Absolute Basos (auto) (0-0.2) 10^3/ul Absolute Nucleated RBC 10^3/ul Nucleated RBC % Sodium (135-145) mmol/L Potassium (3.5-5.0) mmol/L Chloride (101-111) mmol/L Carbon Dioxide (22-32) mmol/L Anion Gap (2-11) mmol/L BUN (6-24) mg/dL Creatinine (0.51-0.95) mg/dL Est GFR ( Amer) (>60) Est GFR (Non-Af Amer) (>60) BUN/Creatinine Ratio (8-20) Glucose (70-100) mg/dL Lactic Acid (0.5-2.0) mmol/L Calcium (8.6-10.3) mg/dL Magnesium (1.9-2.7) mg/dL Total Bilirubin (0.2-1.0) mg/dL AST (13-39) U/L ALT (7-52) U/L Alkaline Phosphatase (34-104) U/L Troponin I (<0.04) ng/mL B-Natriuretic Peptide 17 (<=100) pg/mL Total Protein (6.4-8.9) g/dL Albumin (3.2-5.2) g/dL Globulin (2-4) g/dL Albumin/Globulin Ratio (1-3) TSH (0.34-5.60) mcIU/mL Urine Color Michaela Urine Appearance Cloudy Urine pH 5.0 (5-9) Ur Specific [place] 1.027 (1.010-1.030) Urine Protein Negative (Negative) Urine Ketones 1+ A (Negative) Urine Blood Negative (Negative) Urine Nitrate Negative (Negative) Urine Bilirubin 2+ A (Negative) Urine Urobilinogen Positive A (Negative) Ur Leukocyte Esterase Trace A (Negative) Urine WBC (Auto) 1+(6-10/hpf) A (Absent) Urine RBC (Auto) Trace(0-2/hpf) (Absent) Ur Squamous Epith Cells Present A (Absent) Urine Bacteria 3+ A (Absent) Urine Glucose Negative (Negative) Result Diagrams: 04/25/19 17:50 04/25/19 17:50 Lab Statement: Any lab studies that have been ordered have been reviewed, and results considered in the medical decision making process. Re-Evaluation - Re-Evaluation First Eval Re-Evaluation Time: 19:15 Change: Improved Comment: feeling better, denies any uti symptoms. wants to wait for culture for urine. able to tolerate ice cream in ED Dizzy Course/Dx - Course Course Of Treatment: 58-year-old female presents with dizziness since last night. She states it is worse with positional changes and when she moves her head. She states that feeling like she is going to pass out. She denies any chest pain or shortness breath. No headache. No change in vision. She states she has any nausea and vomiting. She's been taking oxycodone on empty stomach. States every time she states that every time she takes oxycodone it makes her symptoms worse. She's had her teeth extracted has not been able to eat and drink much. She she feels very weak and dehydrated. Denies any urinary symptoms. No bowel pain. On exam has normal neuro exam. Lungs clear auscultation. EKG shows sinus rhythm. White blood cell count 12. Urine shows potential uti but denies any urinary symptoms and wants to wait for culture to see if needs antibiotics. Not currently on antibiotics. Patient was given fluids Zofran and meclizine and symptoms have resolved. Explain likely is a medication side effect told to limit oxycodone. We'll give Zofran for nausea and meclizine for dizziness. Patient encouraged to eat and drink as tolerated. Patient understands and agrees with plan. - Diagnoses Differential Diagnosis/HQI/PQRI: Benign Paroxysmal Positional Vertigo, Medication Reaction, Metabolic Abnormality Provider Diagnoses: Medication side effect, Dizziness, Nausea Discharge - Sign-Out/Discharge Documenting (check all that apply): Patient Departure Patient Received Moderate/Deep Sedation with Procedure: No - Discharge Plan Condition: Good Disposition: HOME Prescriptions: Meclizine TAB* [Antivert 12.5 TAB*] 25 mg PO TID #21 tab Ondansetron ODT TAB* [Zofran 4 MG Odt TAB*] 4 mg PO Q6H PRN #20 tab.odt PRN Reason: Nausea Patient Education Materials: Dizziness (ED) Referrals: Caitlin Butcher MD [Primary Care Provider] - Additional Instructions: Take meclizine up to 3 tablets a day for vertigo take zofran every 6 hours as needed for nausea Drink plenty of fluids try to limit about of oxycodone you take Follow up with primary within 5 days Return to ED if develop any new or worsening symptoms - Billing Disposition and Condition Condition: GOOD Disposition: Home
[2019-04-25] MEDS ORDERED: O ndansetron ODT 4MG 5TAB PRPK 4 MG PAK PO ONE (19:19)
[2019-04-25 19:52] VITALS: BP 140/79
== END 2019-04-25 19:50 | disposition home or self-care (01) ==
LOC: ED 16:06
DX: R42 Dizziness and giddiness (principal); R11.0 Nausea; T40.2X5A Adverse effect of other opioids, initial encounter; Y92.9 Unspecified place or not applicable
CPT/HCPCS: 36415; 80053; 81003; 81015; 83605; 83735; 83880; 84443; 84484; 85025; 87086; 93005; 96361; 96374; 99283; A9270-GY; J2405

== ENCOUNTER 2019-10-28 00:12 | Emergency (ER) | payer OTHER ==
--- OUTSIDE RECORDS SUMMARY | 2019-10-28 00:36 | XMS REPORT | Summary of Care ---
:1960 Author Organization [facility] Address [address] [facility] [place] [address] Care Team Providers Name Role Phone Magdi Damico Primary Care Provider Reason for Visit Reason Comments Follow-up 1-month follow-up on elevated liver enzymes. Encounter Details Date Type Department Care Team Description 08/30/2019 Office Visit [facility] Sarabia (nonalcoholic Gastroenterology/Hepa Florence Urban NP fatty liver disease) tology 1 [facility] (Primary Dx) [address] [facility] [place] [address] [place] [address] [phone] Allergies Active Allergy Reactions Severity Noted Date Comments No Known Drug Allergy 01/21/2008 documented as of this encounter (statuses as of 08/30/2019) Medications Medication Sig Dispensed Refills Start Date End Date Status alendronate (FOSAMAX) 70 Take 1 Tab by 12 Tab 1 05/20/2019 Active MG Oral Tab mouth EVERY 7 DAYS. calcium carbonate Take 1 Tab by 180 Tab 1 05/27/2019 Active (CALCIUM 600) 600 MG Oral mouth TWICE Tab DAILY. Vitamin D, Take 50,000 12 Cap 0 07/09/2019 Active Ergocalciferol, Units by mouth (ERGOCALCIFEROL) 80633 EVERY FRIDAY. units Oral CapIndications: Vitamin D deficiency MECLIZINE HCL PO Take by mouth 0 Active NEEDED. cyclobenzaprine Take 1 Tab by 30 Tab 0 08/25/2019 Active (FLEXERIL) 10 MG Oral mouth THREE TabIndications: Acute TIMES DAILY midline low back pain NEEDED (back without sciatica, spasm). Bilateral hip pain diclofenac (VOLTAREN) 75 Take 1 Tab by 60 Tab 0 08/25/2019 Active MG Oral Tab mouth TWICE ECIndications: Bilateral DAILY. hip pain documented as of this encounter (statuses as of 08/30/2019) Active Problems Problem Noted Date Back pain 02/23/2018 Other screening mammogram 08/31/2011 Other (abnormal) findings on radiological examination of breast 08/31/2011 Mammographic microcalcification 12/26/2010 Hyperlipidemia Vitamin D deficiency Syncope Non-traumatic compression fracture of T4 thoracic vertebra Osteoporosis documented as of this encounter (statuses as of 08/30/2019) Immunizations Name Administration Dates Next Due Depo Medrol (40mg) 05/24/2008 documented as of this encounter Social History Tobacco Use Types Packs/Day Years Used Date Never Smoker Smokeless Tobacco: Never Used Alcohol Use Drinks/Week oz/Week Comments Yes occ Sex Assigned at Date Recorded Not on file Job Start Date Occupation Industry Not on file Not on file Not on file Travel History Travel Start Travel End No recent travel history available. documented as of this encounter Last Filed Vital Signs Vital Sign Reading Time Taken Comments Blood Pressure 118/82 08/30/2019 7:32 AM EDT Pulse 60 08/30/2019 7:32 AM EDT Temperature 36.6 08/30/2019 7:32 AM EDT C (97.8 F) Respiratory Rate - - Oxygen Saturation - - Inhaled Oxygen Concentration - - Weight 65.5 kg (144 lb 8 oz) 08/30/2019 7:32 AM EDT Height 144.8 cm (4' 9") 08/30/2019 7:32 AM EDT Body Mass Index 31.27 08/30/2019 7:32 AM EDT documented in this encounter Patient Instructions Patient InstructionsFlorence Royal NP - 08/30/2019 7:40 AM EDT1. Continue to work on diet and exercise 2. Will recheck liver enzymes in 3 Months 3. Follow up after the above Thank you for choosing the [facility] for your needs today! -Florence Royal N.P. , Please call if you need to cancel or change your appt. time. Thank you for choosing [facility] for your health care needs, and for consulting with [facility] today. You may receive a survey following this visit, or after an upcoming hospital stay. As easy as it is to feel overloaded with surveys, we are required to send them out randomly and they do provide important feedback so that we may serve your needs in the best way. Please do take the few minutes required to complete the survey if you receive one. We get them too, after seeing the doctor, and they only take a few minutes to complete. Patient Education Nonalcoholic Steatohepatitis (GARCIA) The Basics Written by the doctors and editors at [facility] What is nonalcoholic fatty liver disease?Nonalcoholic fatty liver disease, sometimes called NAFLD, is a condition in which fat builds up in the liver. The liver is a big organ in the upper right side of the belly (figure 1). There are two types of NAFLD: Nonalcoholic fatty liver (also called NAFL) In NAFL, the liver has fat buildup, but is not inflamed Nonalcoholic steatohepatitis (also called GARCIA) In GARCIA, the liver has fat buildup and is inflamed This article is mostly about GARCIA, because that is the condition that can lead to the most problems. People who drink too much alcohol can get a condition similar to GARCIA. But GARCIA happens in people who do not drink alcohol or drink only a little alcohol. What causes GARCIA?Doctors do not know what causes GARCIA. They do know that GARCIA happens more often in some people, such as those who: Are overweight Have a condition called diabetes mellitus, which causes blood sugar levels to get too high Have high cholesterol Take certain medicines What are the symptoms of GARCIA?Most people with GARCIA have no symptoms. Your doctor or nurse might suspect that you have GARCIA from the results of your routine blood tests. Will I need more tests?Yes. If your doctor or nurse suspects that you have GARCIA, you will likely have: More blood tests An imaging test of the liver, such as an ultrasound, CT, or MRI scan Imaging tests create pictures of the inside of the body. Some people need a liver biopsy. During this test, a doctor removes a small sample of tissue from the liver. Then another doctor looks at the sample under a microscope to see if GARCIA is present. A liver biopsy is the only test that can tell for sure if you have GARCIA. Your doctor might do this test if he or she is not sure if you have GARCIA or to see how much inflammation there is in the liver. If yourblood tests and imaging tests are normal you will not need a liver biopsy. How is GARCIA treated?GARCIA is not treated directly. But the condition can get better when other medical conditions that often happen with GARCIA get treated. For example, losing weight, and controlling high blood sugar and cholesterol can help improve GARCIA. With that in mind, your doctor can: Help you create a weight loss plan, if you are overweight If your doctor recommends thatyou lose weight, it's important to do so slowly. Do not lose more than 3.5 pounds (1.6 kilograms) a week. Treat your high blood sugar, if you have high blood sugar Treat your high cholesterol, if you have high cholesterol Making these changes has benefits besides helping with GARCIA. These changes can also reduce your chances of having a heart attack or stroke. That's important because people with GARCIA are often also at risk for heart disease and stroke. If you take a medicine that could be causing GARCIA, your doctor will stop or change that medicine. If you have a severe form of GARCIA but do not also have diabetes or heart disease , your doctor or nurse might suggest that you take vitamin E. A few studies suggest that vitamin E can reduce some of theliver damage that occurs as part of GARCIA. On the other hand, there are also studies that suggest that high doses of vitamin E increase the risk of . So do not take vitamin E unless your doctor or nurse recommends it. Does GARCIA get worse over time?GARCIA does not usually get worse over time. But sometimesit leads to serious scarring of the liver, called "cirrhosis." Cirrhosis can cause different symptoms, such as swelling in the legs, trouble breathing, or feeling tired. If you get cirrhosis, your doctor will talk with you about different possible treatments. Do I need to follow up with my doctor?Yes. People who have GARCIA need to see their doctor for regular check-ups. Your doctor will do follow-up tests on a regular basis. These usually include blood tests. All topics are updated as new evidence becomes available and our peer review process is complete. This topic retrieved from [employer]! on: Oct 12, 2018. Topic 48455 Version 8.0 Release: 26.5.4 - C26.311 [employer]. and/or its affiliates.All rights reserved. figure 1: Organs inside the abdomen (belly) Graphic 17802 Version 6.0 Consumer Information Use and Disclaimer This information is not specific medical advice and does not replace information you receive from your health care provider. This is only a brief summary of general information. It does NOT include allinformation about conditions, illnesses, injuries, tests, procedures, treatments, therapies, discharge instructions or life-style choices that may apply to you. You must talk with your health care provider for complete information about your health and treatment options. This information should not beused to decide whether or not to accept your health care provider's advice, instructions or recommendations. Only your health care provider has the knowledge and training to provide advice that is right for you.The use of [employer]! content is governed by the [employer]! Terms of Use. 2018 [employer]. All rights reserved. Copyright 2018[employer]. and/or its affiliates.All rights reserved. documented in this encounter Progress Notes Florence Royal NP - 08/30/2019 7:40 AM EDT PATIENT:Kathrine Rivas : 1960 DATE OF SERVICE: 08/30/2019 Chief Complaint Patient presents with Follow-up 1-month follow-up on elevated liver enzymes. SUBJECTIVE: Kathrine Rivas is a very pleasant 58-y.o. female who presents to us today in follow up for abnormal liver enzymes. The elevations were noted during routine bloodwork. Labs testing has ruled out chronic infectious hepatitis, alpha 1 antitrypsin deficiency, celiac disease, iron overload, Kush's disease, autoimmunehepatitis and primary biliary cirrhosis. US was positive for fatty infiltration which is the likely cause of her mild transaminitis. Elevations have never been greater than 2 X ULN therefore biopsy is not warranted. Fibrosure testing showed No significant fibrosis, staging was F0. There has been no history of clinical hepatitis with jaundice. She does not drink alcohol routinely, she does not follow a healthy diet plan or regular exercise regimen. Denies abdominal pain,heartburn, dysphagia, fatigue, nausea, vomiting, melena, hematemesis, hematochezia, constipation, diarrhea, jaundice, fevers, chills, night sweats, weight loss, easy bruising, chest pain, shortness of breath, dysuria, hematuria, pyuria, joint pains, acholic stools, dark urine or systemic pruritis. Past Medical History: Diagnosis Date Abnormal mammogram, unspecified Fractures Hernia of unspecified site of abdominal cavity without mention of obstruction or gangrene Hyperlipidemia Menarche age 12 Menopause 44 partial hysterectomy Non-traumatic compression fracture of T4 thoracic vertebra Osteoporosis Postmenopausal partial hysterectomy 3 yrs ago Syncope UTI (urinary tract infection) Vitamin D deficiency Past Surgical History: Procedure Laterality Date GC US BREAST BIOPSY Right left metal behind during process PA TOTAL ABDOM HYSTERECTOMY REPAIR OF HERNIA Abdominal hernia repair. TOOTH EXTRACTION NEC VAGINAL HYSTERECTOMY ovaries remain Social History Socioeconomic History Marital status: Spouse name: Not on file Number of children: Not on file Years of education: Not on file Highest education level: Not on file Occupational History Not on file Social Needs Financial resource strain: Not on file Food insecurity: Worry: Not on file Inability: Not on file Transportation needs: Medical: Not on file Non-medical: Not on file Tobacco Use Smoking status: Never Smoker Smokeless tobacco: Never Used Substance and Sexual Activity Alcohol use: Yes Comment: occ Drug use: Yes Frequency: 1.0 times per week Types: Marijuana Comment: per patient about twice a month Sexual activity: Not on file Lifestyle Physical activity: Days per week: Not on file Minutes per session: Not on file Stress: Not on file Relationships Social connections: Talks on phone: Not on file Gets together: Not on file Attends christianity service: Not on file Active member of club or organization: Not on file Attends meetings of clubs or organizations: Not on file Relationship status: Not on file Intimate partner violence: Fear of current or ex partner: Not on file Emotionally abused: Not on file Physically abused: Not on file Forced sexual activity: Not on file Other Topics Concern Not on file Social History Narrative - 2 children Unemployed currently No known drug allergy Current Outpatient Medications Medication Sig alendronate (FOSAMAX) 70 MG Oral Tab Take 1 Tab by mouth EVERY 7 DAYS. calcium carbonate (CALCIUM 600) 600 MG Oral Tab Take 1 Tab by mouth TWICE DAILY. cyclobenzaprine (FLEXERIL) 10 MG Oral Tab Take 1 Tab by mouth THREE TIMES DAILY NEEDED (back spasm). diclofenac (VOLTAREN) 75 MG Oral Tab EC Take 1 Tab by mouth TWICE DAILY. MECLIZINE HCL PO Take by mouth NEEDED. Vitamin D, Ergocalciferol, (ERGOCALCIFEROL) 77503 units Oral Cap Take 50, 000 Units by mouth EVERY FRIDAY. No current facility-administered medications for this visit. All remaining review of systems was negative except for as noted in the history of present illness/subjective. OBJECTIVE: BP 118/82 | Pulse 60 | Temp 97.8 F (36.6 C) | Ht 4' 9" (1.448 m) | Wt 144 lb 8 oz (65.5 kg) | BMI 31.27 kg/m Physical Examination: GENERAL: alert, oriented, no acute distress. HEENT: No scleral icterus, MMM Psych: Affect normal Neck: no lymphadenopathy LUNGS: clear to auscultation bilaterally. HEART: regular rhythm, no murmurs, no gallops, no rubs. ABDOMEN: general exam: soft, non-tender, non-distended, without masses or organomegaly, normal active bowel sounds, Alcala's sign negative. Extremities: no edema Skin: clear Neuro: gait normal, a&o x 3 RECTAL: exam deferred. Impression/Plan ICD-9-CM ICD-10-CM 1. NAFLD (nonalcoholic fatty liver disease) 571.8 K76.0 LIVER FUNCTION PROFILE LIPID PROFILE Patient Instructions 1. Continue to work on diet and exercise 2. Will recheck liver enzymes in 3 Months 3. Follow up after the above Thank you for choosing the [facility] for your needs today! -Florence Royal N.P. , Please call if you need to cancel or change your appt. time. Thank you for choosing [facility] for your health care needs, and for consulting with [facility] today. You may receive a survey following this visit, or after an upcoming hospital stay. As easy as it is to feel overloaded with surveys, we are required to send them out randomly and they do provide important feedback so that we may serve your needs in the best way. Please do take the few minutes required to complete the survey if you receive one. We get them too, after seeing the doctor, and they only take a few minutes to complete. Patient Education Nonalcoholic Steatohepatitis (GARCIA) The Basics Written by the doctors and editors at [employer] What is nonalcoholic fatty liver disease?Nonalcoholic fatty liver disease, sometimes called NAFLD, is a condition in which fat builds up in the liver. The liver is a big organ in the upper right side of the belly (figure 1). There are two types of NAFLD: Nonalcoholic fatty liver (also called NAFL) In NAFL, the liver has fat buildup, but is not inflamed Nonalcoholic steatohepatitis (also called GARCIA) In GARCIA, the liver has fat buildup and is inflamed This article is mostly about GARCIA, because that is the condition that can lead to the most problems. People who drink too much alcohol can get a condition similar to GARCIA. But GARCIA happens in people who do not drink alcohol or drink only a little alcohol. What causes GARCIA?Doctors do not know what causes GARCIA. They do know that GARCIA happens more often in some people, such as those who: Are overweight Have a condition called diabetes mellitus, which causes blood sugar levels to get too high Have high cholesterol Take certain medicines What are the symptoms of GARCIA?Most people with GARCIA have no symptoms. Your doctor or nurse might suspect that you have GARCIA from the results of your routine blood tests. Will I need more tests?Yes. If your doctor or nurse suspects that you have GARCIA, you will likely have: More blood tests An imaging test of the liver, such as an ultrasound, CT, or MRI scan Imaging tests create pictures of the inside of the body. Some people need a liver biopsy. During this test, a doctor removes a small sample of tissue from the liver. Then another doctor looks at the sample under a microscope to see if GARCIA is present. A liver biopsy is the only test that can tell for sure if you have GARCIA. Your doctor might do this test if he or she is not sure if you have GARCIA or to see how much inflammation there is in the liver. If yourblood tests and imaging tests are normal you will not need a liver biopsy. How is GARCIA treated?GARCIA is not treated directly. But the condition can get better when other medical conditions that often happen with GARCIA get treated. For example, losing weight, and controlling high blood sugar and cholesterol can help improve GARCIA. With that in mind, your doctor can: Help you create a weight loss plan, if you are overweight If your doctor recommends thatyou lose weight, it's important to do so slowly. Do not lose more than 3.5 pounds (1.6 kilograms) a week. Treat your high blood sugar, if you have high blood sugar Treat your high cholesterol, if you have high cholesterol Making these changes has benefits besides helping with GARCIA. These changes can also reduce your chances of having a heart attack or stroke. That's important because people with GARCIA are often also at risk for heart disease and stroke. If you take a medicine that could be causing GARCIA, your doctor will stop or change that medicine. If you have a severe form of GARCIA but do not also have diabetes or heart disease , your doctor or nurse might suggest that you take vitamin E. A few studies suggest that vitamin E can reduce some of theliver damage that occurs as part of GARCIA. On the other hand, there are also studies that suggest that high doses of vitamin E increase the risk of . So do not take vitamin E unless your doctor or nurse recommends it. Does GARCIA get worse over time?GARCIA does not usually get worse over time. But sometimesit leads to serious scarring of the liver, called "cirrhosis." Cirrhosis can cause different symptoms, such as swelling in the legs, trouble breathing, or feeling tired. If you get cirrhosis, your doctor will talk with you about different possible treatments. Do I need to follow up with my doctor?Yes. People who have GARCIA need to see their doctor for regular check-ups. Your doctor will do follow-up tests on a regular basis. These usually include blood tests. All topics are updated as new evidence becomes available and our peer review process is complete. This topic retrieved from [employer]! on: Oct 12, 2018. Topic 80361 Version 8.0 Release: 26.5.4 - C26.311 [employer]. and/or its affiliates.All rights reserved. figure 1: Organs inside the abdomen (belly) Graphic 61735 Version 6.0 Consumer Information Use and Disclaimer This information is not specific medical advice and does not replace information you receive from your health care provider. This is only a brief summary of general information. It does NOT include allinformation about conditions, illnesses, injuries, tests, procedures, treatments, therapies, discharge instructions or life-style choices that may apply to you. You must talk with your health care provider for complete information about your health and treatment options. This information should not beused to decide whether or not to accept your health care provider's advice, instructions or recommendations. Only your health care provider has the knowledge and training to provide advice that is right for you.The use of Up[employer]Date content is governed by the [employer]! Terms of Use. 2018 [employer]. All rights reserved. Copyright 2018[employer]. and/or its affiliates.All rights reserved. AUTHOR: Florence Royal NP Section of Gastroenterology 08/30/2019 07:57 documented in this encounter Plan of Treatment Date Type Specialty Care Team Description 11/29/2019 Lab Internal Medicine Name Type Priority Associated Diagnoses Order Schedule LIVER FUNCTION PROFILE Lab Routine NAFLD (nonalcoholic fatty Expected: liver disease) (Approximate), Expires: 12/31/2019 LIPID PROFILE Lab Routine NAFLD (nonalcoholic fatty Expected: 08/30/2019 liver disease) (Approximate), Expires: 03/27/2020 Health Maintenance Due Date Last Done Comments ZOSTER IMMUNIZATION SERIES 2011 (1 of 2) LIPID DISORDER SCREENING 06/06/2015 06/06/2010, 05/03/2009, 05/24/2008, Additional history exists INFLUENZA VACCINE (#1) 2019 DEPRESSION SCREENING 04/14/2020 04/14/2019 MAMMOGRAM (SCREENING) 05/21/2020 05/21/2019, 08/30/2011, 01/08/2011, Additional history exists DIABETES SCREENING 05/25/2020 05/25/2019, 04/14/2019, 05/03/2009, Additional history exists PAP SMEAR 05/26/2022 05/03/2009, 04/22/2005, Postponed from 08/12/2002 05/03/2012 (Other) HEPATITIS C SCREENING Completed 07/26/2019, 05/26/2019, 04/14/2019 HPV IMMUNIZATION SERIES Aged Out No longer eligible based on patient's age to complete this topic MENINGOCOCCAL VACCINE IMM Aged Out No longer eligible based on patient's age to complete this topic PNEUMOCOCCAL 0-64 YRS Aged Out No longer eligible based on patient's age to complete this topic documented as of this encounter Results Not on filedocumented in this encounter Visit Diagnoses Diagnosis NAFLD (nonalcoholic fatty liver disease) - Primary Other chronic nonalcoholic liver disease documented in this encounter (Home) [facility] [phone] [place], ([place]) [id number] [id number] documented as of this encounter
--- NOTE | 2019-10-28 03:58 | ED ---
Upper Extremity Pain - HPI Summary HPI Summary: Pt is a 59 y/o F presenting to the ED with a chief complaint of L forearm pain. She states she was at work when a heavy box of batteries fell on her L arm. She denies other sx, including fever. - History of Current Complaint Chief Complaint: EDExtremityUpper Stated Complaint: ARM INJURY AT WORK PER PT Time Seen by Provider: 10/28/19 03:38 Hx Obtained From: Patient Hx Last Menstrual Period: hyster Mechanism Of Injury: Blunt Trauma Onset/Duration: Started Hours Ago, Still Present Timing: Constant, Lasting Hours Severity Initially: Mild Severity Currently: Mild Pain Location: Forearm Aggravating Factor(s): Nothing Alleviating Factor(s): Nothing Associated Signs & Symptoms: Negative: Fever - Allergies/Home Medications Allergies/Adverse Reactions: Allergies Allergy/AdvReac Type Severity Reaction Status Date / Time No Known Allergies Allergy Verified 10/28/19 00:28 PMH/Surg Hx/FS Hx/Imm Hx Previously Healthy: Yes Endocrine/Hematology History: Denies: Hx Anticoagulant Therapy, Hx Diabetes, Hx Thyroid Disease Cardiovascular History: Denies: Hx Hypercholesterolemia, Hx Hypertension Respiratory History: Denies: Hx Asthma, Hx Chronic Obstructive Pulmonary Disease (COPD) GI History: Denies: Hx Ulcer Sensory History: Reports: Hx Contacts or Glasses Denies: Hx Legally Blind, Hx Deafness Opthamlomology History: Reports: Hx Contacts or Glasses Denies: Hx Legally Blind Psychiatric History: Denies: Hx Schizophrenia - Cancer History Cancer Type, Location and Year: denies - Surgical History Surgery Procedure, Year, and Place: 2 hernia surgeries. partial hysterectomy ( 15-20 years ago) Infectious Disease History: No Infectious Disease History: Denies: Hx Clostridium Difficile, Hx Hepatitis, Hx Human Immunodeficiency Virus (HIV), Hx of Known/Suspected MRSA, Hx Shingles, Hx Tuberculosis, Hx Known/ Suspected VRE, Hx Known/Suspected VRSA, History Other Infectious Disease, Traveled Outside the [place] in Last 30 Days - Family History Known Family History: Positive: Hypertension Negative: Diabetes Family History: Additional family history of breast cancer - Social History Alcohol Use: Occasionally Hx Substance Use: Yes Substance Use Type: Reports: Marijuana Substance Use Comment - Amount & Last Used: occassional Hx Tobacco Use: No Smoking Status (MU): Never Smoked Tobacco Review of Systems - ROS Summary Review of Systems Summary: Home Medications Medication Instructions Recorded Confirmed Type Acetaminophen TAB* [Tylenol TAB*] 650 mg PO Q4H PRN 12/08/17 07/15/19 History oxyCODONE/Acetamin 5/325 MG* 1 tab PO Q4H PRN #15 tab MDD 6 tabs 03/27/19 Rx [Percocet 5/325 TAB*] Meclizine TAB* [Antivert 12.5 TAB*] 25 mg PO TID PRN #30 tab 07/15/19 Rx Negative: Fever Positive: Myalgia All Other Systems Reviewed And Are Negative: Yes Physical Exam - Summary Physical Exam Summary: General: Well-developed, Well-nourished female. No acute distress. HEENT: Normocephalic, Atraumatic. Eyes: Conjuctiva normal, PERRL. Oropharynx: Clear, mucous membranes moist, (-) exudates. Neck: Soft, FROM, (-) lymphadenopathy, (-) thyromegaly, (-) JVD. Cardiovascular: Normal sinus rhythm, (-) murmur. Lungs: Clear to auscultation bilaterally (-) wheezes, (-) rales, (-) rhonchi. Abdomen: Soft, non-tender, non-distended, (-) organomegaly, normal bowel sounds. Back: (-) CVA tenderness Extremities: No edema. Some tenderness in medial L forearm. Normal strength, sensation distally, normal pulses, nml cap refill. Skin: Warm, dry, (-) rash. Neuro: Alert and oriented x3, no focal deficits. Psychiatric: Mood normal, affect normal. Triage Information Reviewed: Yes Vital Signs On Initial Exam: Initial Vitals Temp Pulse Resp BP Pulse Ox 98.1 F 70 16 143/103 97 10/28/19 00:25 10/28/19 00:25 10/28/19 00:25 10/28/19 00:25 10/28/19 00:25 Vital Signs Reviewed: Yes Procedures - Sedation Patient Received Moderate/Deep Sedation with Procedure: No Diagnostics - Vital Signs Vital Signs Temp Pulse Resp BP Pulse Ox 10/28/19 02:03 97.5 F 72 16 155/99 97 10/28/19 00:25 98.1 F 70 16 143/103 97 - Laboratory Lab Statement: Any lab studies that have been ordered have been reviewed, and results considered in the medical decision making process. - Radiology Forearm XR Radiology Interpretation Completed By: ED Physician Summary of Radiographic Findings: No forearm fracture. Pending official radiology report. Course/Dx - Course Course Of Treatment: 59-year-old female presents with left forearm pain. She states she was injured at work when a heavy box of batteries on her arm. She denies any tingling or numbness or weakness. She states she wanted to have it checked out to make sure it was okay. She does have a work release form to return to work. Patient has mild tenderness and swelling in the area. She has no obvious fracture on x-ray. Patient states she has ibuprofen and Aleve at home she can take for pain. Patient discharged home, may return to work without restrictions. Follow up with PCP. Follow up sooner for any worsening symptoms. - Diagnoses Provider Diagnoses: Contusion of left forearm Discharge ED - Sign-Out/Discharge Documenting (check all that apply): Patient Departure - Discharge Plan Condition: Stable Disposition: HOME Patient Education Materials: Contusion in Adults (ED) Referrals: [facility] [Outside] - Billing Disposition and Condition Condition: STABLE Disposition: Home - Attestation Statements Document Initiated by Ashkanibe: Yes Documenting Scribe: Daria Roman Provider For Whom Cristóbal is Documenting (Include Credential): Anisha Combs MD. Scribe Attestation: Daria Chao scribed for Anisha Combs MD. on 10/28/19 at 0555. Scribe Documentation Reviewed: Yes Provider Attestation: The documentation as recorded by the Daria ellison accurately reflects the service I personally performed and the decisions made by , Anisha Combs MD. Status of Scribe Document: Viewed
[2019-10-28 04:22] VITALS: BP 122/78
== END 2019-10-28 04:20 | disposition home or self-care (01) ==
LOC: ED 00:12
DX: S50.12XA Contusion of left forearm, initial encounter (principal); W20.8XXA Other cause of strike by thrown, projected or falling object, initial encounter; Y92.89 Other specified places as the place of occurrence of the external cause; Y99.0 Civilian activity done for income or pay; Z90.710 Acquired absence of both cervix and uterus
CPT/HCPCS: 99282

== ENCOUNTER 2023-06-28 14:38 | Observation (INO) ==
[2023-06-28 15:06] LABS: ABS Basophils 0.1 10^3/uL (0.0-0.1); ABS Eosinophils 0.3 10^3/uL (0.0-0.5); ABS Lymphocytes 2.8 10^3/uL (1.0-4.8); ABS Monocytes 0.7 10^3/uL (0.0-0.9); ABS Neutrophils 3.6 10^3/uL (1.5-7.6); Eosinophil % 4.3 %; Hematocrit 41.6 % (35-45); Hemoglobin 14.5 g/dL (11.5-14.3); Lymphocyte % 37.8 %; Mean Corpuscular Hemoglobin 30.6 pg (27-33); Mean Corpuscular Hgb Conc 34.9 g/dL (31-36); Mean Corpuscular Volume 87.6 fL (80-97); Mean Platelet Volume 8.6 fL (7.5-11.2); Nucleated Red Blood Cells % 0.1 /100 WBC (0.0-0.4); Platelet Count 270 10^3/uL (150-450); Red Blood Count 4.75 10^6/uL (3.63-4.92); Red Cell Distribution Width 12.9 % (12-17); White Blood Count 7.5 10^3/uL (3.8-11.8)
[2023-06-28 15:07] LABS: INR 0.97 (0.88-1.18)
[2023-06-28 15:32] LABS: Albumin 4.3 g/dL (3.2-5.2); Albumin/Globulin Ratio 1.7 (1-3); Calcium 9.6 mg/dL (8.6-10.3); Creatinine, Serum 0.71 mg/dL (0.51-0.95); Globulin 2.5 g/dL (2-4); Total Bilirubin 0.5 mg/dL (0.2-1.0); Total Protein 6.8 g/dL (6.4-8.9); eGFR CKD-EPI 96.7 (>60)
[2023-06-28 16:45] LABS: High Sensitivity Troponin 1 Hr 7 pg/mL (<15)
[2023-06-28] MEDS ORDERED: Al Hydrox/Mg Hydrox/Simet LIQ 30 ML UDC PO ONE (18:05)
[2023-06-28] MEDS ORDERED: Heparin DRIP 25,000 UNITS BAG 25,000 UNITS/500 ML BAG IV SCH ×2 (18:15→20:45)
[2023-06-28] MEDS ORDERED: Heparin 5000 UNITS/ML 1 mL VIAL IV SCH ×2 (19:00→21:00)
[2023-06-28 21:02] LABS: ABS Basophils 0.1 10^3/uL (0.0-0.1); ABS Eosinophils 0.3 10^3/uL (0.0-0.5); ABS Lymphocytes 3.1 10^3/uL (1.0-4.8); ABS Monocytes 0.7 10^3/uL (0.0-0.9); Eosinophil % 4.4 %; Hematocrit 41.3 % (35-45); Hemoglobin 14.4 g/dL (11.5-14.3); Lymphocyte % 43.7 %; Mean Corpuscular Hemoglobin 30.6 pg (27-33); Mean Corpuscular Hgb Conc 34.9 g/dL (31-36); Mean Corpuscular Volume 87.6 fL (80-97); Mean Platelet Volume 8.5 fL (7.5-11.2); Nucleated Red Blood Cells % 0.1 /100 WBC (0.0-0.4); Platelet Count 261 10^3/uL (150-450); Red Blood Count 4.71 10^6/uL (3.63-4.92); Red Cell Distribution Width 12.8 % (12-17); White Blood Count 7.1 10^3/uL (3.8-11.8)
[2023-06-28 21:19] LABS: Creatinine, Serum 0.69 mg/dL (0.51-0.95); eGFR CKD-EPI 98.7 (>60)
[2023-06-29 03:11] LABS: ABS Basophils 0.1 10^3/uL (0.0-0.1); ABS Eosinophils 0.3 10^3/uL (0.0-0.5); ABS Monocytes 0.7 10^3/uL (0.0-0.9); ABS Neutrophils 4.8 10^3/uL (1.5-7.6); Eosinophil % 2.9 %; Hematocrit 40.3 % (35-45); Hemoglobin 14.2 g/dL (11.5-14.3); Lymphocyte % 33.9 %; Mean Corpuscular Hgb Conc 35.3 g/dL (31-36); Mean Corpuscular Volume 87.8 fL (80-97); Mean Platelet Volume 8.4 fL (7.5-11.2); Platelet Count 240 10^3/uL (150-450); Red Blood Count 4.59 10^6/uL (3.63-4.92); Red Cell Distribution Width 12.9 % (12-17); White Blood Count 8.7 10^3/uL (3.8-11.8)
[2023-06-30 07:07] LABS: ABS Eosinophils 0.3 10^3/uL (0.0-0.5); ABS Lymphocytes 2.3 10^3/uL (1.0-4.8); ABS Monocytes 0.6 10^3/uL (0.0-0.9); ABS Neutrophils 3.5 10^3/uL (1.5-7.6); Eosinophil % 4.7 %; Hematocrit 42.2 % (35-45); Hemoglobin 14.7 g/dL (11.5-14.3); Lymphocyte % 33.7 %; Mean Corpuscular Hemoglobin 30.9 pg (27-33); Mean Corpuscular Hgb Conc 34.8 g/dL (31-36); Mean Corpuscular Volume 88.7 fL (80-97); Mean Platelet Volume 8.6 fL (7.5-11.2); Platelet Count 246 10^3/uL (150-450); Red Blood Count 4.75 10^6/uL (3.63-4.92); Red Cell Distribution Width 13.2 % (12-17); White Blood Count 6.8 10^3/uL (3.8-11.8)
[2023-06-30 07:21] LABS: Creatinine, Serum 0.72 mg/dL (0.51-0.95); eGFR CKD-EPI 95.1 (>60)
[2023-07-01 06:00] LABS: ABS Eosinophils 0.3 10^3/uL (0.0-0.5); ABS Monocytes 0.6 10^3/uL (0.0-0.9); ABS Neutrophils 3.7 10^3/uL (1.5-7.6); Eosinophil % 4.4 %; Hematocrit 41.6 % (35-45); Hemoglobin 14.7 g/dL (11.5-14.3); Lymphocyte % 30.5 %; Mean Corpuscular Hgb Conc 35.4 g/dL (31-36); Mean Corpuscular Volume 87.8 fL (80-97); Mean Platelet Volume 8.5 fL (7.5-11.2); Platelet Count 251 10^3/uL (150-450); Red Blood Count 4.74 10^6/uL (3.63-4.92); Red Cell Distribution Width 12.9 % (12-17); White Blood Count 6.7 10^3/uL (3.8-11.8)
[2023-07-01] MEDS ORDERED: Regadenoson 0.4 MG/5 ML SYRINGE ONE (11:53)
[2023-07-01 14:09] VITALS: BP 110/70
== END 2023-07-01 16:20 | disposition home or self-care (01) ==
LOC: ED 14:38 → SUATTDRO 21:44 → EDHOLD 21:44 → INTOOBSV 21:44 → MEDTELE 23:55
PROVIDERS: ADMIT Internal Medicine; ATTEND Internal Medicine